=== PATIENT | male | born 1965 | race Caucasian/White ===

== ENCOUNTER 2023-01-12 07:55 | Outpatient (CLI) | payer BC, SELFPAY ==
--- OUTSIDE RECORDS SUMMARY | 2023-01-14 09:53 | XMS_ITS | Continuity of Care Document ---
Author Name Unknown Organization [facility] Address [address] [place] [address] Phone Care Team Providers Care Pulp Tester Name Role Phone Silver Sun Unavailable Unavailable Advance Directives Directive Yes / No Effective Date File Name No Information Encounters Encounter Description Practice Location Reason(s) For Visit Diagnoses Date Provider Providers Copied on Encounter [facility] , [address], [place], [place], [id number], [place] tel:[phone] No Information Yonathan Sheppard. [facility], [address] [place] [address] [address], [place], [place], [id number], [place]. tel:[phone] Family History Family Member Type Diagnosis Age At Onset No Information Payers Payer name Insurance type Covered libertarian ID Authoriza tion(s) No Information Social History Type Description Quantity Date Captured Comments Sex Male Smoking Status No Information Chief Complaint And Reason For Visit No Information Reason For Referral Reason For Referral No Information History Of Present Illness Encounter Date Complaint History Of Prese nt Illness No Information Functional Status Date Functional Assessmen t No Information Instructions Date Instruction Additional Infor mation No Information Assessments Type Assessment Date No Information Patient Care Teams Name Effective Dates (start - stop) Status Members No Information
== END 2023-01-12 07:56 | disposition home or self-care (01) ==
LOC: NFLDREF 01-14 09:52
PROVIDERS: PCP Family Medicine; Referring Provider Family Medicine; Visit Provider Family Medicine
DX: Z00.00 Encounter for general adult medical examination without abnormal findings (principal); E78.5 Hyperlipidemia, unspecified; R53.83 Other fatigue; Z12.5 Encounter for screening for malignant neoplasm of prostate
CPT/HCPCS: 80053; 80061; 84153

== ENCOUNTER 2023-12-18 13:39 | Emergency (ER) | payer OTHER, SELFPAY ==
[2023-12-18 13:49] VITALS: BP 144/78; PULSE 84; RESP 16; TEMP 36.9; O2SAT 94; BMI 29.4
--- NOTE | 2023-12-18 14:11 | ED.UPPEXIN ---
HPI - Extremity Injury (Upper) General Date Seen: 12/18/23 Chief Complaint: Extremity Pain/Injury, Upper Stated Complaint: injured left shoulder & right leg Time Seen by Provider: 12/18/23 14:11 Source: patient and RN notes reviewed Mode of arrival: ambulatory Limitations: no limitations History of Present Illness HPI narrative: This is a worker's comp visit Paulino is a very pleasant 58-year-old gentleman with a history of coronary artery disease status post bypass currently on aspirin daily who comes to the emergency room with complaints of left shoulder and right hamstring pain. Paulino states approximately a week ago he was at work holding a heavy sheet of plywood. He notes that he was turning and had the sudden onset and popping sensation in the back of his right thigh. He then had to shift all of the weight he was holding onto his left and was worried about his balance and therefore brought the plywood close to him causing a strain of his left shoulder. The next day he notes that he had discomfort and describes this as a strain like sensation. He did go to work the next day. However, his injury never really improved in his shoulder and in fact he has had more and more pain over the last 4 days. He notes that he cannot lift his arm. The pain in his shoulder radiates up into his neck and down into his hand. He has tried ibuprofen at home. He has not injured his shoulder in the past nor has he had any surgeries. Any movement greatly increases his discomfort. He does have some pain at rest as well. He notes that if he can lift his arm up and relieved the pressure in the shoulder he does have some decrease in his pain. In regards to his right thigh, he is still able to walk. Notes that the discomfort feels like a strain. He has not injured his hamstring in the past. He did not notice any unusual bruising. Related Data Home Medications ?Medication ?Instructions ?Recorded ?Confirmed aspirin 81 mg tablet,delayed 81 mg PO QDAY 05/28/22 12/18/23 release (Adult Aspirin Regimen) acetaminophen 500 mg oral powder 1,500 mg PO Q6H PRN 09/01/23 12/18/23 packet (Tylenol Extra Strength) ascorbic acid (vitamin C) 500 mg 500 mg PO DAILY 09/01/23 12/18/23 tablet cholecalciferol (vitamin D3) 25 1,000 unit PO DAILY 09/01/23 12/18/23 mcg (1,000 unit) tablet colchicine 0.6 mg tablet 0.6 mg PO .As Needed as needed PRN 09/01/23 12/18/23 famotidine 20 mg tablet (Pepcid) 20 mg PO QDAY PRN 09/01/23 12/18/23 prednisone 20 mg tablet 20 - 40 mg PO QDAY PRN 09/01/23 12/18/23 Previous Rx's ?Medication ?Instructions ?Recorded atorvastatin 40 mg tablet 40 mg PO QHS #90 tabs 01/14/23 pregabalin 75 mg capsule 75 - 150 mg (1 - 2 x 75 mg) PO BID 01/14/23 PRN pain #60 caps nitroglycerin 0.4 mg sublingual 0.4 mg sublingual Q5M PRN chest 04/29/23 tablet pain #20 tabs tramadol 50 mg tablet 50 mg PO TID PRN pain #30 tabs 09/01/23 prednisone 20 mg tablet 40 mg (2 x 20 mg) PO QDAY #10 tabs 11/25/23 ketorolac 10 mg tablet 10 mg PO Q8H PRN pain #10 tabs 12/18/23 prednisone 20 mg tablet 40 mg (2 x 20 mg) PO DAILY 5 days 12/18/23 #10 tabs Allergies Allergy/AdvReac Type Severity Reaction Status Date / Time gabapentin Allergy Severe Vomiting Verified 09/01/23 08:15 Review of Systems Status of ROS: Reports: 10 or more systems reviewed and unremarkable except as noted in History and below [facility] Surgical History History of vasectomy ?Z98.52 - Vasectomy status (ICD-10) History of three vessel coronary artery bypass (~09/2011) ?Z95.1 - Presence of aortocoronary bypass graft (ICD-10) History of operative procedure on hip ?Z98.890 - Other specified postprocedural states (ICD-10) History of hernia repair ?Z98.890 - Other specified postprocedural states (ICD-10) ?Z87.19 - Personal history of other diseases of the digestive system (ICD-10) Social History What is your current living situation?: I presently have a place to live Problems where you live: pests, such as bugs, ants, or mice In the past 12 months, utilities in danger of being shut off: no In past 12 months, lack of transportation kept you from medical appts, meetings, work, or getting things needed for daily living: no In the past 12 mos, have been you worried that your food would run out before you had money to buy more?: never true In the past 12 mos, the food you bought just didn't last and you didn't have money to buy more?: never true Smoking Status: Never smoker Do you use any of these nicotine containing products: None How often do you have a drink containing alcohol: monthly or less AUDIT-C Alcohol total score: 1 Non-prescribed substance use: marijuana (any form) How often does anyone, including family, friends and others, physically hurt you: never How often does anyone, including family, friends and others, insult or talk down to you: sometimes How often does anyone, including family, friends and others, threaten you with harm: never How often does anyone, including family, friends and others, scream or curse at you: sometimes Little interest or pleasure in doing things: not at all Feeling down, depressed, or hopeless: not at all Exam Narrative: Exam Narrative: Paulino is alert and oriented. He is a very pleasant gentleman. External ears eyes nose clear. He has some tenderness noted over the body of the trapezius on the left. Range of motion of his neck is full. Some discomfort with palpation over the posterior scapula. No pain with palpation over the clavicle or the AC joint. No obvious deformity at the shoulder. Biceps appears to be intact. Distally sensation and motor is intact. 1+ DTRs at the elbow and brachial radialis. Passive range of motion is tolerated very well with internal external rotation forward flexion extension. Abduction is to 90? passively before discomfort occurs. Active range of motion is compromise in all directions. Examination of the right side shows no obvious swelling edema or bruising. I do lift patient's leg and he is able to flex at the knee causing flexion of the posterior thigh muscles without difficulty. Const: Vital Signs, click to edit/add: Vital Signs - 24 hr 12/18/23 13:49 Temperature 98.4 F Pulse Rate [Left R adial] 84 Respiratory Rate 16 Blood Pressure [Ri ght Upper Arm] 144/78 H Pulse Oximetry 94 Oxygen Delivery Me thod Room Air Documenting provider has reviewed patient's vital signs: yes Course Course ED Course: Differential diagnosis includes but is not limited to rotator cuff injury, labral tear, tendinitis, other shoulder injury. At this time will obtain x-ray of the left shoulder. Reevaluation(s) Reevaluation #1: X-ray reassuring by my read. Patient agreeable to Toradol and a steroid but is declining any injections. Therefore we will use Toradol 10 mg p.o. and prednisone 60 mg. Vital Signs Vital signs: Initial Vital Signs Temperature 98.4 F 12/18/23 13:49 Temperature Source Temporal Artery Scan 12/18/23 13:49 Pulse Rate 84 12/18/23 13:49 Pulse Rhythm Regular 12/18/23 13:49 Respiratory Rate 16 12/18/23 13:49 Blood Pressure 144/78 H 12/18/23 13:49 Blood Pressure Mean 100 12/18/23 13:49 Pulse Oximetry 94 12/18/23 13:49 Oxygen Delivery Method Room Air 12/18/23 13:49 Vital Signs Temperature 98.4 F 12/18/23 13:49 Pulse Rate 84 12/18/23 13:49 Respiratory Rate 16 12/18/23 13:49 Blood Pressure 144/78 H 12/18/23 13:49 Pulse Oximetry 94 12/18/23 13:49 Oxygen Delivery Method Room Air 12/18/23 13:49 Temperature 98.4 F 12/18/23 13:49 Pulse Rate 84 12/18/23 13:49 Respiratory Rate 16 12/18/23 13:49 Blood Pressure 144/78 H 12/18/23 13:49 Pulse Oximetry 94 12/18/23 13:49 Oxygen Delivery Method Room Air 12/18/23 13:49 Medications Administered Medications: Discontinued Medications Generic Name Dose Route Start Last Admin Trade Name Freq PRN Reason Stop Dose Admin Ketorolac Tromethamine 10 mg 12/18/23 14:25 12/18/23 14:49 Ketorolac 10 Mg Tablet PO 12/18/23 14:26 10 mg ONCE ONE Administration Prednisone 60 mg 12/18/23 14:25 12/18/23 14:49 Prednisone 20 Mg Tablet PO 08/02/24 14:26 60 mg ONCE ONE Administration MDM - Extremity Injury (Upper) MDM Narrative Medical decision making narrative: 1. Left shoulder injury-suspect rotator cuff. In the ED patient was placed in a shoulder immobilizer. He was given Toradol 10 mg and prednisone 60 mg after declining any injections. We will continue on prednisone 40 mg a day for the next 5 days and this is given through our [facility] meds machine. At home he may use his tramadol as needed. I am hoping he will have pain relief in the next few hours as the prednisone starts working. Ultimately I do believe he will need an MRI. As it is workers comp I will need to have approved this approved. I spoke with orthopedic PA today and they will be looking for Paulino to call in on ThursdayDecember 20. I did warn him that physical therapy may also be necessary prior to the MRI. We spoke about [id number] exercises in the ER demonstrated today. I would like him to do this 3 to 4 times a day to preserve range of motion and avoid frozen shoulder. 2. Right hamstring strain-at this time I do not find any evidence of a tear. Recommend orthopedic consult likely PT with ultrasound therapy for evaluation. Ice as needed. 3. Disposition-home at this time. Paulino states he does not need a note for work as he knows the boss very well. He is currently on a PPI which I do recommend with the use of prednisone. Return to the emergency room for worsening symptoms and as needed. Patient is requesting Toradol and prednisone be sent to pharmacy. Toradol 10 mg p.o. t.i.d. p.r.n. 10. Tablets and prednisone 40 mg daily x5 days is sent to his pharmacy. Medical Records Attestation: I reviewed the patient's medical records. Imaging Data Left shoulder x-ray: Attestation: I have reviewed the pertinent imaging results. My impression: No obvious abnormalities. Radiologist's impression: Bones: No evidence of fracture. Bipartite acromion. Joint spaces: Unremarkable. Soft tissues: Unremarkable. Impression: No evidence of fracture or dislocation. Incidental bipartite acromion. Discharge Plan Discharge Clinical Impression: Injury of left shoulder, Right hamstring injury Patient Disposition: Home, Self-Care Condition: Improved Additional Instructions: Recommend wearing immobilizer for comfort. Three to 4 times a day please remove your arm from the immobilizer and do the [id number] exercises that I demonstrated and we talked about in order to prevent a frozen shoulder. Continue prednisone as your anti-inflammatory over the next 4 days. Call the orthopedic clinic on Thursday for an appointment. The number is [phone] Return to the emergency room for worsening symptoms. Prescriptions: New prednisone 20 mg tablet 40 mg PO DAILY 5 Days Qty: 10 0RF ketorolac 10 mg tablet 10 mg PO Q8H PRN (Reason: pain) Qty: 10 0RF Rx Instructions: maximum total duration of 5 days from all oral, intranasal, or parenteral formulations No Action Tylenol Extra Strength 500 mg powder in packet 1,500 mg PO Q6H PRN prednisone 20 mg tablet 20 - 40 mg PO QDAY PRN Rx Instructions: Take 40mg daily x 4 days, then 20mg daily x 4 days. colchicine 0.6 mg tablet 0.6 mg PO .As Needed as needed PRN Hold Instructions: per pt. Rx Instructions: take 2 tabs at once, take additional 1 tab 1 hr later. famotidine [Pepcid] 20 mg tablet 20 mg PO QDAY PRN cholecalciferol (vitamin D3) 25 mcg (1,000 unit) tablet 1,000 unit PO DAILY ascorbic acid (vitamin C) 500 mg tablet 500 mg PO DAILY tramadol 50 mg tablet 50 mg PO TID PRN (Reason: pain) Qty: 30 5RF aspirin [Adult Aspirin Regimen] 81 mg tablet,delayed release (DR/EC) 81 mg PO QDAY pregabalin 75 mg capsule 75 - 150 mg PO BID PRN (Reason: pain) Qty: 60 5RF atorvastatin 40 mg tablet 40 mg PO QHS Qty: 90 3RF nitroglycerin 0.4 mg tablet, sublingual 0.4 mg sublingual Q5M PRN (Reason: chest pain) Qty: 20 0RF Rx Instructions: up to 3 doses prednisone 20 mg tablet 40 mg PO QDAY Qty: 10 0RF Follow Up/Referrals: Matthias Peralta MD [Primary Care Provider] - Stand Alone Forms: [facility] Info Instructions
--- NOTE | 2023-12-18 14:25 | CRLHL7_ITS ---
For Patients: As a result of the Cures Act, medical imaging exams and procedure reports are released immediately into your electronic medical record. You may view this report before your referring provider. If you have questions, please contact your health care provider. Indication: Left shoulder pain. Technique: Left shoulder 3 views. Comparison: None. Findings: Bones: No evidence of fracture. Bipartite acromion. Joint spaces: Unremarkable. Soft tissues: Unremarkable. Impression: No evidence of fracture or dislocation. Incidental bipartite acromion. Dictated by Obdulio Shelley MD @ 12/18/2023 3:13:27 PM (Electronically Signed)
--- OUTSIDE RECORDS SUMMARY | 2023-12-18 14:36 | XMS_ITS | Clinical Summary ---
Author Organization [facility] Address [address] [place] [id number] Care Team Providers Care Glass Designer Name Role Phone [facility], [facility] Primary Care Provider Allergies Active Allergy Reactions Criticality Noted Date Comments Gabapentin Nausea 08/23/2021 Medications Medication Sig Dispensed Refills Start Date End Date Status aspirin 81 MG EC tablet Take 1 tablet by mouth daily. 90 tablet 3 11/25/2012 Active nitroglycerin (NITROSTAT) 0.[address] 1 tablet under the tongue every 5 minutes as needed for chest pain. 25 tablet 0 11/25/2012 Active Atorvastatin Calcium (LIPITOR PO) Take 40 mg by mouth daily Active Cholecalciferol (VITAMIN D) 1000 UNITS capsule Take 1,000 Units by mouth daily Active vitamin B complex with vitamin C (VITAMIN B COMPLEX) TABS Take 1 tablet by mouth daily Active pregabalin (LYRICA) 75 MG capsule Take 1 capsule by mouth 2 times daily 08/13/2021 Active traMADol (ULTRAM) 50 MG tablet TAKE 1 TABLET BY MOUTH 3 TIMES DAILY NEEDED. MAX 400MG/DAY 08/12/2021 Active Active Problems Problem Noted Date Diagnosed Date Dyspnea 08/23/2021 Hx of CABG 08/23/2021 Gout, unspecified 03/27/2021 Radiculitis of left cervical region 04/27/2018 Chest pain 01/02/2014 Major depression, single episode 04/14/2012 CAD (coronary artery disease ), bypass graft transplanted heart 10/23/2011 Overview: 3V CABG. 10/10/2011- [facility] Mixed hyperlipidemia 07/23/2010 Resolved Problems Problem Noted Date Diagnosed Date Resolved Date Advanced directives, counseling/discussion 10/16/2011 10/17/2011 Overview: Discussed advance care planning with patient; information given to patient to review. Pt received Favorite Words packet. Jhoana Kelley, [facility] 10/16/2011 Unstable angina 10/10/2011 10/17/2011 Pain in joint, pelvic region and thigh 05/06/2007 06/10/2007 Other postprocedural status(V45.89) 05/06/2007 06/10/2007 Social History Tobacco Use Types Packs/Day Years Used Date Smoking Tobacco: Some Days Cigarettes Tobacco Cessation:Ready to Q uit: Yes Alcohol Use Standard Drinks/Week Comments Yes 1.7 (1 standard drin k = 0.6 oz pure alcohol) ~ 1time per month has 14-15 beers in 6 hour period Adolescent Education Answer Date Record ed Getting School Help Needed Not on file 02/21 Sex and Gender Information Value Date Recorded Sex Assigned at Not on file Gender Identity Not on file Sexual Orientation Not on file Last Filed Vital Signs Vital Sign Reading Time Taken Comments Blood Pressure 91/73 08/23/2021 4:15 PM CDT Pulse 74 08/23/2021 4:15 PM CDT Temperature 36.9 ??C (98.4 ??F) 08/23/2021 1 1:03 AM CDT Respiratory Rate 18 08/23/2021 11:0 3 AM CDT Oxygen Saturation 96% 08/23/2021 4:15 PM CDT Inhaled Oxygen Concentration - - Weight 101.6 kg (223 lb 15.8 oz) 2021 11:03 AM CDT Height 190.5 cm (6' 3) 01/02/2014 6:00 PM CDT Body Mass Index 28 01/02/2014 6:00 PM CDT Plan of Treatment Health Maintenance Due Date Last Done Comments ANNUAL REVIEW OF HM ORDERS 1966 CT COLONOGRAPHY 1966 DEPRESSION ACTION PLAN 1966 FIT 1966 FLEX SIG 1966 PHQ-9 1966 YEARLY PREVENTIVE VISIT 1966 sDNA (Cologuard) 1966 Pneumococcal Vaccine: Pediatrics (0 to 5 Years) and At-Risk Patients (6 to 64 Years) (1 of 2 - PCV) 1972 COLONOSCOPY 1976 COLORECTAL CANCER SCREENING 1976 HIV SCREENING 1981 HEPATITIS C SCREENING 1984 HEPATITIS B IMMUNIZATION (1 of 3 - 19+ 3-dose series) 1985 LIPID 10/10/2012 10/11/2011 LUNG CANCER SCREENING 2016 ZOSTER IMMUNIZATION (1 of 2) 2016 ADVANCE CARE PLANNING 10/16/2016 10/17/2011, 012 COVID-19 Vaccine (3 - season) 2023 08/25/2020, 08/04/2020 INFLUENZA VACCINE (#1) 2024 05/14/2020 GLUCOSE 08/23/2024 08/23/2021, 06/19, 08/04/2016, Additional history exists DTAP/TDAP/TD IMMUNIZATION (4 - Td or Tdap) 03/28/2031 03/28/2021, 09/16/2011, 04/16/2007 HPV IMMUNIZATION Aged Out No longer e ligible based on patient's age to complete this topic IPV IMMUNIZATION Aged Out No longer e ligible based on patient's age to complete this topic MENINGITIS IMMUNIZATION Aged Out No l onger eligible based on patient's age to complete this topic RSV MONOCLONAL ANTIBODY Aged Out No l onger eligible based on patient's age to complete this topic Medical Devices Implanted Type Area Hosp[facility] Fellow Device Identifier Shelf Expiration Date Model / Serial / Lot Imp Clip Horiz Multi Sm Yellow Implanted:Qty: 2 on 10/13/2011 at [facility] [id number] / / Procedures Procedure Name Priority Date/Time Associated Diagnosis Comments BASIC METABOLIC PANEL STAT 08/23/2021 11:20 AM CDT LIPID REFLEX TO DIRECT LDL PANEL Routine 10/11/2011 5:00 AM CDT from Last 3 Months or Most Recently Relevant to Health Maintenance Results * (ABNORMAL) Basic metabolic panel (08/23/2021 11:20 AM CDT) [facility] Sodium 137 133 - 144 mmol/L 08/23/2021 12:01 PM CDT LABORATORY Potassium 4.3 3.4 - 5.3 mmol/L 08/23/2021 12:01 PM CDT LABORATORY Chloride 103 94 - 109 mmol/L 08/23/2021 12:01 PM CDT LABORATORY Carbon Dioxide (CO2) 26 20 - 32 mmol/L 08/23/2021 12:01 PM CDT LABORATORY Anion Gap 8 3 - 14 mmol/L 08/23/2021 12:01 PM CDT LABORATORY Urea Nitrogen 14 7 - 30 mg/dL 08/23/2021 12:01 PM CDT LABORATORY Creatinine 0.89 0.66 - 1.25 mg/dL 08/23/2021 12:01 PM CDT LABORATORY Calcium 9.4 8.5 - 10.1 mg/dL 08/23/2021 12:01 PM CDT LABORATORY Glucose 123(H) 70 - 99 mg/dL 08/23/2021 12:01 PM CDT LABORATORY GFR Estimate >90 >60 mL/min/1.7 3m2 08/23/2021 12:01 PM CDT LABORATORY Comment:Effective April 182020 eGFRcr in adults is calculated using the 2020 CKD-EPI creatinine equation which includes age and gender (Macario et al., NEJM, DOI: 10.1056/RDTEio2551582) Blood STRUCTURE OF RIGHT UPPER LIMB / Unknown Venipuncture / Unknown 08/23/2021 11:20 AM CDT 08/23/2021 11:27 AM CDT Severo Benjamin PA-C LAB - BLOOD ORDERABL ES LABORATORY [facility] [address] Lab (1st floor, no room number) [place] [address], [facility] [phone] * (ABNORMAL) Lipid panel reflex to direct LDL (10/11/2011 5:00 AM CDT) Cholesterol 190 0 - 200 mg/dL [facility] Comment: LDL Cholesterol is the primary guide to therapy. The NCEP recommends further evaluation of: patients with cholesterol greater than 200 mg/dL if additional risk factors are present, cholesterol greater than 240 mg/dL, triglycerides greater than 150 mg/dL, or HDL less than 40 mg/dL. Triglycerides 209(H) 0 - 150 mg/dL [facility] HDL Cholesterol 48 40 - 110 mg/dL [facility] LDL Cholesterol Calculated 100 0 - 129 mg/dL [facility] Comment: LDL Cholesterol is the primary guide to therapy: LDL-cholesterol goal in high risk patients is <100 mg/dL and in very high risk patients is <70 mg/dL. VLDL-Cholesterol 42(H) 0 - 30 mg/dL [facility] Cholesterol/HDL Ratio 3.9 0.0 - 5.0 [facility] Blood specimen (specimen) 10/11/2011 5:00 AM CDT 10/11/2011 5:33 AM CDT Amilcar Kovacs MD LAB - BLOOD ORDERABL ES [facility] from Last 3 Months or Most Recently Relevant to Health Maintenance Advance Directives For more information, please contact: [phone] * Full Code (Latest Code Status on File) Date Activated Date Inactivated Comments 01/02/2014 5:50 PM 01/03/2014 9:50 PM * Full Code Date Activated Date Inactivated Comments 10/10/2011 11:15 PM 10/18/2011 8:18 PM Care Teams Glass Designer Relationship Specialty Start Date End Date [address] [address] PCP - General 08/04/16
--- OUTSIDE RECORDS SUMMARY | 2023-12-18 14:36 | XMS_ITS | Clinical Summary ---
Author Organization [facility] Address [address] [place] [address] Care Team Providers Care Incident Response Specialist Name Role Phone Needs Pcp, Assignment Primary Care Provider [phone] Source Comments You are receiving this document as you are listed as the primary care provider,follow-up provider, or the patient has been referred to you for consultation.This is in compliance with the Medicare and[facility] EHR Incentive Program,which states Providers who transition their patient to another setting of careor provider of care or refers their patient to another provider of care shouldprovide summary care record for each transition of care or referral. Babyage Allergies Active Allergy Reactions Criticality Noted Date Comments Gabapentin Nausea 11/10/2017 Other Other, see comments High 04/15/2021 Passes out with needles Medications Medication Sig Dispensed Refills Start Date End Date Status atorvastatin (LIPITOR) 10 MG tablet Take 10 mg by mouth daily. Active aspirin, enteric-coated 81 MG enteric coated tablet Take 81 mg by mouth daily. Active colchicine (COLCRYS) 0.6 MG tablet 03/28/2021 Active traMADol (ULTRAM) 50 MG tablet 03/28/2021 Active dexamethasone (DECADRON) 4 MG/ML injection to be used during therapy for iontophoresis 15 mL 03/29/2021 Active Social History Tobacco Use Types Packs/Day Years Used Date Smoking Tobacco: Former Smokeless Tobacco: Never Sex and Gender Information Value Date Recorded Sex Assigned at Not on file Gender Identity Not on file Sexual Orientation Not on file Last Filed Vital Signs Vital Sign Reading Time Taken Comments Blood Pressure 106/72 11/16/2017 7:01 PM CDT Pulse 79 11/16/2017 7:01 PM CDT Temperature 36.8 ??C (98.2 ??F) 11/16/2017 7:01 PM CD T Respiratory Rate 18 11/16/2017 7:01 PM CDT Oxygen Saturation - - Inhaled Oxygen Concentration - - Weight 107.5 kg (237 lb) 11/16/2017 7:01 PM CDT Height - - Body Mass Index - - Plan of Treatment Health Maintenance Due Date Last Done Comments Colon Cancer Screening Plan Due 1965 Hep C Screening (Preventive Services) 1965 PSA Screening Discussion 1966 HIV Screening (Preventive Services) 1982 Adult Preventive Visit 1984 HepB (1) 1985 Cholesterol 2001 Zoster/Shingles (1 of 2) 2016 COVID-19 Vaccine (3 - 2022-2 4 season) 2023 08/25/2020, 08/04/2020 Influenza (#1) 2024 05/14/2020 DTaP/Tdap/Td (4 - Tdap) 03/28/2031 03/28/20, 09/16/2011, 04/16/2007 HepA Aged Out No longer eligi ble based on patient's age to complete this topic Hib Aged Out No longer eligi ble based on patient's age to complete this topic IPV (Polio) Aged Out No longer eligi ble based on patient's age to complete this topic MCV4 Aged Out No longer eligi ble based on patient's age to complete this topic Pneumococcal Aged Out No longer eligi ble based on patient's age to complete this topic Care Teams Incident Response Specialist Relationship Specialty Start Date [place] [address] PCP - General 04/29/23
--- OUTSIDE RECORDS SUMMARY | 2023-12-18 14:36 | XMS_ITS | Encounter Summary ---
Author Organization [facility] Address [address] [place] [address]. [place] [address] Care Team Providers Care Experience Specialist Name Role Phone [facility], [facility] [place] Primary Care Provider Clinic, [facility] Primary Care Provider Encounter Details Date Type Department Care Team (Late st Contact Info) Description 01/26/2012 Office Visit-[facility] [place] [id number] [facility] [address] [place] [phone] Simón Ahumada MD [address] [facility] [address] [place], [place] [id number] Social History Tobacco Use Types Packs/Day Years Used Date Smoking Tobacco: Every Day Cigarettes Alcohol Use Standard Drinks/Week Comments Yes 1.7 (1 standard drin k = 0.6 oz pure alcohol) ~ 1time per month has 14-15 beers in 6 hour period Sex and Gender Information Value Date Recorded Sex Assigned at Not on file Gender Identity Not on file Sexual Orientation Not on file documented as of this encounter Progress Notes * Simón Ahumada MD - 01/26/2012 8:26 AM CDT Progress Note Created by: Simón Ahumada MD DATE: 01/26/2012 ANH CALI DATE OF : 1965 AGE: [age] years old Referring Physician: BETSEY PORRAS Referring Clinic[facility] CURRENT DIAGNOSES 1. Polyneuropathy In Other Diseases Classified Elsewhere, 357.4 2. - Hyperlipidemia, 272.4 3. - CAD, 414.00 4. - CABG, V45.81 ALLERGIES MEDICATIONS (prior to changes made today) 1. Lidoderm 5 %(700 mg/patch) Adhesive Patch, Medicated, Apply every morning May cut patches 2. Vicodin 5-500 mg tablet, 1 p.o. three times daily CHIEF COMPLAINTS HISTORY OF PRESENT ILLNESS Patient arrived at [place] for an [place] ([place]) visit. He was requesting to see someone today regarding his paresthesias from his CABG wound sites. Had 15 minute discussion (no charge) regardinghis neuropathy. Does have rash to gabapentin. Prescribed one month of limited Vicodin and lidoderm patches that he can cut and apply to the most annoying skin areas. If the discomfort feels better with the patches, then he may cancel his Thursday [place] appointment and reschedule for 2-3 weeks (he is worried about taking off two days in one week). Simón Ahumada MD documented in this encounter Plan of Treatment Not on file documented as of this encounter Visit Diagnoses Not on filedocumented in this encounter Care Teams Experience Specialist Relationship Specialty Start Date End Date [facility], [place] [address] [place], [place] [id number] PCP - General 10/08/11 08/03/16 Clinic, [address] [address] PCP - General 08/04/16 documented as of this encounter
--- OUTSIDE RECORDS SUMMARY | 2023-12-18 14:36 | XMS_ITS | Continuity of Care Document ---
Author Organization [facility] Address [address] [place] [address] Phone Care Team Providers Care Bread Oven Operator Name Role Phone [place] Unavailable Unavailable Advance Directives Directive Yes / No Effective Date File Name No Information Encounters Encounter Description Practice Location Reason(s) For Visit Diagnoses Date Provider Providers Copied on Encounter [facility] , [address], [place], [place], [id number], [place] tel:[phone] No Information Yonathan Sheppard. [facility], [address] [place] [address], [place], [place], [id number], [place]. tel:[phone] Family History Family Member Type Diagnosis Age At Onset No Information Payers Payer name Insurance type Covered republican ID Authoriza tion(s) No Information Social History [...]
--- OUTSIDE RECORDS SUMMARY | 2023-12-18 14:36 | XMS_ITS | Clinical Summary ---
Author Organization [facility] Address [place], [place] [address] Care Team Providers Care Forensic Locksmith Name Role Phone Matthias Peralta MD Primary Care Provider [phone] Allergies Active Allergy Reactions Criticality Noted Date Comments Gabapentin Nausea Only 11/10/2017 Medications Medication Sig Dispensed Refills Start Date End Date Status aspirin enteric coated 81 mg tablet Take 1 tablet by mouth once daily with a meal. 0 10/23/2011 Active atorvastatin (LIPITOR) 20 mg tablet Take 1 tablet by mouth once daily. 30 tablet 3 07/30/2012 Active tramadol HCl/acetaminophen (TRAMADOL-ACETAMINOP HEN ORAL) Take by mouth. Active ergocalciferol, vitamin D2, (VITAMIN D2 ORAL) Take by mouth. Active ibuprofen (ADVIL; MOTRIN) 800 mg tabletIndications:Ch ronic heel pain, right,Plantar fasciitis Take 1 tablet by mouth 3 times daily if needed. 60 tablet 2 12/22/2019 Active durable medical equipment (DME)Indications:Taqueria ntar fasciitis,Chronic heel pain, right DJO 01EFL, boot walk airselect std tall large 0 12/22/2019 Active Active Problems Problem Noted Date Diagnosed Date Radiculitis of left cervical region 04/27/2018 Issue of repeat prescriptions 04/14/2012 Overview: Pain contract signed. Neuropathic chest wall pain s/p CABG. Vicodin 5/500, Cymbalta, and Elavil daily. Working toward cutting back on Vicodin use. Angela Ross, .................... 04/14/2012 9:34 PM Major depression, single episode 04/14/2012 Neuropathic pain of chest 12/25/2011 CAD (coronary artery disease ), bypass graft transplanted heart 10/23/2011 Overview: 3V CABG. 10/10/2011- [place] Mixed hyperlipidemia 07/23/2010 Displacement of intervertebr al disc, site unspecified, without myelopathy 11/15/2007 Gout, unspecified Immunizations Name Administration Dates Next Due Tdap 04/16/2007 Family History Relation Name Status Comments Father Mother Social History Tobacco Use Types Packs/Day Years Used Date Smoking Tobacco: Former Cigarettes 0.5 20 0 10/10/1991 - 10/10/2011 Smokeless Tobacco: Never Tobacco Cessation:Counseling Given: Yes Alcohol Use Standard Drinks/Week Comments Yes 0 (1 standard drink = 0.6 oz pur e alcohol) social Social Connections Answer Date Recorded Frequency of Communication with Friends and Fami ly Not on file 05/18/2021 Financial Resource Strain Answer Date R ecorded Difficulty of Paying Living Expenses Not on file 05/18/2021 Difficulty of Paying Living Expenses Not on file 05/18/2021 Sex and Gender Information Value Date Recorded Sex Assigned at Not on file Gender Identity Not on file Sexual Orientation Not on file Obstetrics History Last Filed Vital Signs Vital Sign Reading Time Taken Comments Blood Pressure 125/86 02/15/2020 4:14 PM CDT Pulse 78 02/15/2020 4:14 PM CDT Temperature 36.2 ??C (97.2 ??F) 04/28/2018 8:29 AM CS T Respiratory Rate 20 04/28/2018 9:29 AM SCANNING CLERK Oxygen Saturation 97% 02/15/2020 4:14 PM CDT Inhaled Oxygen Concentration - - Weight 105.7 kg (233 lb) 12/22/2019 3:18 PM CDT Height 190 cm (6' 2.8) 08/25/2019 9:32 AM CDT Body Mass Index 29.28 08/25/2019 9:32 AM CDT Plan of Treatment Health Maintenance Due Date Last Done Comments Depression screening for age 12+ 1978 HIV for age 15-65 1981 Hepatitis C screening for age 18-79 1984 Colonoscopy through age 75 2011 Zoster (shingles) series for age 50+ (1 of 2) 2016 Tetanus booster 04/16/2017 04/16/2007 Lipids for age 45-75 07/29/2017 07/29/2012, 03/26/2012, 10/27/2011, Additional history exists BMI (ht and wt on same day) for age 18+ 08/24/2020 08/25/2019, 06/10/2018, 03/15/2018 COVID-19 vaccine series (2022- season) 2023 Influenza for age 50-64 01/17/2024 Tdap Completed 04/16/2007 Pneumococcal series for age 6-64 Aged Out No longer eligible based on patient's age to complete this topic Procedures Procedure Name Priority Date/Time Associated Diagnosis Comments LIPID PANEL W REFLEX MEASURED LDL Routine 07/29/2012 2:08 PM CDT Overweight from Last 3 Months or Most Recently Relevant to Health Maintenance Results * (ABNORMAL) LIPID PANEL W REFLEX MEASURED LDL (07/29/2012 2:08 PM CDT) CHOLESTEROL,TOTA L 216(H) 100 - 199 mg/dL [facility] TRIGLYCERIDES 338(H) <150 mg/dL [facility] HDL CHOLESTEROL 43 >40 mg/dL [facility] CHOL/HDL RATIO 5.02(H) <4.50 [facility] NON-HDL CHOLESTEROL 173 Undefined mg/dL [facility] LDL CHOLESTEROL 105 <131 mg/dL [facility] PATIENT STATUS Non-Fast ing [facility] Blood specimen (specimen) BLOOD SPECIMEN / Unknown 07/29/2012 2:08 PM CDT 07/29/2012 2:03 PM CDT Angela Ross DO CHEMISTRY [facility] INTERNAL ZIP [address] [place] [address] from Last 3 Months or Most Recently Relevant to Health Maintenance Care Teams Forensic Locksmith Relationship Specialty Start Date End Date Matthias Peralta MD [address] [place] [phone] PCP - General Family Practice 03/08/18
--- OUTSIDE RECORDS SUMMARY | 2023-12-18 14:36 | XMS_ITS | Encounter Summary ---
Author Organization [facility] Address [address] [place] [address] Care Team Providers Care Care Giver Name Role Phone Clinic, [facility] Primary Care Provider Clinic, [facility] Primary Care Provider Encounter Details Date Type Department Care Team (Late st Contact Info) Description 11/06/2011 Office Visit-P INTERFACE P DEPT Sebas Bryson MD XXX RESIGNED XXX [place] [id number] Social History Tobacco Use Types Packs/Day Years [...] as of this encounter Progress Notes * Sebas Bryson MD - 11/06/2011 2:30 PM CDT Repairer Cylinder Heads: Sebas Bryson Status: Final - Signature Encounter: 2011-11-06 14:30:00.000 Type: CV Surgery Letter Department of Surgery Division of Cardiovascular and Thoracic Surgery [place] Mail Code [address] [place] [address] [address] [facility] Cardiothoracic Surgery [address] [facility] [address] [facility] [address] November 06, 2011 Vineet Young MD [address] [place] [address] Mike Nugent MD [facility] [address] [facility] [address] RE: Paulino Mcbride : 1965 XAVIER: 11/06/2011 Dear Doctors: Mr. Mcbride returned to the office today for a postoperative followup visit. This gentleman presented with unstable angina, dyslipidemia and a history of tobacco dependency. He was found to have diffuse coronary artery disease and on underwent triple-vessel coronary bypass including internal mammary artery grafting to the LAD, reversed saphenous vein graft to the 1st diagonal and reversed saphenous vein graft to the 2nd diagonal coronary arteries. Postoperatively, the patient had a fairly straightforward course. He had a small left apical pneumothorax which did not cause any significant difficulties. He was discharged on metoprolol, simvastatin and Roxicodone. The patient is [facility] participating in cardiac rehabilitation. He has had a fairly significant amount of difficulty with his left leg including pain extending from the knee on down to the ankle. He finds that it is significantly more comfortable for him to wear an elastic support stocking and wrap the lower part of his leg with an Bao bandage. He has had no other wound healing difficulties. He has been using fairly significant amounts of pain medication. However, he does try to elevate the leg at night. He uses a La-Z-Boy during the day, but is not able to get his leg above the level of his chest. Examination shows him to be healing well. His blood pressure is 110/70. Heart rate is 76. The sternotomy incision is well-healed and stable. Heart is regular without murmurs, rubs or gallops. Lungs are clear. His lower extremities are not edematous, but he does have an elastic stocking going up to just above the knee and has removed his Bao bandage. There is no evidence of induration or erythema. There is no drainage. I had a nice conversation with Mr. Mcbride about the necessity to keep his leg elevated above the level of his heart during the day and to avoid resting with his leg dependent. We have given him a prescription for Vicodin 30 tablets and have requested that he follow up for further pain medicine requests with his family physician. He does have a followup appointment with Dr. Young in January, at which time a checkout and final transfer visit will be done. All in all, Mr. Mcbride is doing reasonably well. I did inform him that he is about a third of the way through his recovery, but appearsto be making excellent progress. Thanks for the opportunity to participate in his care. Let us know if we can be of any further help. Sincerely, Sebas Bryson MD Department of Surgery [id number] Electronically signed by:Sebas Bryson M.D. Nov 11 2011 1:27PM DATA WAREHOUSE CONSULTANT documented in this encounter Plan of Treatment Not on file documented as of this encounter Visit Diagnoses Not on filedocumented in this encounter Care Teams Care Giver Relationship Specialty Start Date End Date [facility], [facility] [address] [place] [address] PCP - General 10/08/11 08/03/[address] [address] PCP - General 08/04/16 documented as of this encounter
--- OUTSIDE RECORDS SUMMARY | 2023-12-18 14:36 | XMS_ITS | Referral Summary ---
Author Organization [facility] Address [address] [place] [address] Care Team Providers Care Clinical Trials Assistant Name Role Phone [facility] [place] Primary Care Provider Allergies Active Allergy Reactions [...] transplanted heart 10/23/2011 Overview: 3V CABG. 10/10/2011- [place] [facility] Mixed hyperlipidemia 07/23/2010 Resolved Problems Problem Noted Date Diagnosed Date Resolved Date Advanced directives, counseling/discussion 10/16/2011 10/17/2011 Overview: Discussed advance care planning with patient; information given to patient to review. Pt received [facility] packet. Jhoana Kelley, [facility] 10/16/2011 Unstable angina 10/10/2011 10/17/2011 Pain [...] 01/02/2014 6:00 PM CDT Plan of Treatment Not on file Medical Devices Implanted Type Area Ceramic Capacitor Processor Device Identifier Shelf Expiration Date Model / Serial / Lot Imp Clip Horiz Multi Sm Yellow Implanted:Qty: 2 on 10/13/2011 at [facility] [id number] / / Procedures Procedure Name Priority Date/Time Associated Diagnosis Comments BASIC METABOLIC PANEL STAT 08/23/2021 11:20 AM CDT LIPID REFLEX TO DIRECT LDL PANEL Routine 10/11/2011 5:00 AM CDT from Last 3 Months or Most Recently Relevant to Health Maintenance Results * (ABNORMAL) Basic metabolic panel (08/23/2021 11:20 AM CDT) Sodium 137 133 - 144 mmol/L 08/23/2021 [...] and gender (Macario et al., NEJM, DOI: 10.1056/YCGDsw5107426) Blood STRUCTURE OF RIGHT UPPER LIMB / Unknown Venipuncture / Unknown 08/23/2021 11:20 AM CDT 08/23/2021 11:27 AM CDT Severo Benjamin PA-C LAB - BLOOD ORDERABL ES LABORATORY [facility] [address] Lab (1st floor, no room number) [place] [address] [phone] * (ABNORMAL) Lipid panel reflex to direct LDL (10/11/2011 5:00 AM CDT) Cholesterol 190 0 - 200 mg/dL [facility] Comment: LDL Cholesterol is the primary guide to therapy. The NCEP recommends further evaluation of: patients with cholesterol greater than 200 mg/dL if additional risk factors are present, cholesterol greater than 240 mg/dL, triglycerides greater than 150 mg/dL, or HDL less than 40 mg/dL. Triglycerides 209(H) 0 - 150 mg/dL [facility] HDL Cholesterol 48 40 - 110 mg/dL [facility] LDL Cholesterol Calculated 100 0 - 129 mg/dL [facility] Comment: LDL Cholesterol is the primary guide to therapy: LDL-cholesterol goal in high risk patients is <100 mg/dL and in very high risk patients is <70 mg/dL. VLDL-Cholesterol 42(H) 0 - 30 mg/dL [facility] Cholesterol/HDL Ratio 3.9 0.0 - 5.0 [facility] Blood specimen (specimen) 10/11/2011 5:00 AM CDT 10/11/2011 5:33 AM CDT Amilcar Kovacs MD LAB - BLOOD ORDERABL ES [facility] from Last 3 Months or Most Recently Relevant to Health Maintenance Advance Directives For more information, please contact: [phone] * Full Code (Latest Code Status on File) Date Activated Date Inactivated Comments 01/02/2014 5:50 PM 01/03/2014 9:50 PM * Full Code Date Activated Date Inactivated Comments 10/10/2011 11:15 PM 10/18/2011 8:18 PM Care Teams Clinical Trials Assistant Relationship Specialty Start Date End Date Clinic, [place] [address] [place] [address] PCP - General 08/04/16
--- OUTSIDE RECORDS SUMMARY | 2023-12-18 14:36 | XMS_ITS | Encounter Summary ---
Author Organization [place] Address [address] [place] [address]. [place] [address] Care Team Providers Care Copier Operator Name Role Phone [facility] Primary Care Provider Clinic, [facility] Primary Care Provider Encounter Details Date Type Department Care Team (Late st Contact Info) Description 03/15/2012 Office Visit-[facility] [place] [address] [facility] [address] [place] [phone] Vineet Young MD [address] [facility] [address] [place], [place] [address] Social History Tobacco Use Types Packs/Day Years [...] as of this encounter Progress Notes * Vineet Young MD - 03/18/2012 2:41 PM CDT Progress Note Created by: Vineet Young MD DATE: 03/15/2012 ANH CALI DATE OF : 1965 AGE: [age] years old Referring Physician: GENEVIEVE CANNON Referring Clinic: [facility] CURRENT DIAGNOSES 1. - CAD, 414.00 2. Polyneuropathy In Other Diseases Classified Elsewhere, 357.4 3. - Chest Pain Precordial, 786.51 4. - CABG, V45.81 5. - Hyperlipidemia, 272.4 ALLERGIES NKDA MEDICATIONS (prior to changes made today) 1. Aspirin Low Dose 81 mg tablet,delayed release (DR/EC), 1 p.o. daily 2. Lidoderm 5 %(700 mg/patch) Adhesive Patch, Medicated, Apply every morning May cut patches 3. simvastatin 40 mg tablet, 1 p.o. daily 4. triamcinolone acetonide 0.025 % Cream, Take as Directed 5. Tylenol Extra Strength 500 mg tablet, 1 p.o. PRN as Directed 6. Vicodin 5-500 mg tablet, 1 p.o. three times daily CHIEF COMPLAINTS CAD sp CABG, chest wall pain sp CABG and dyslipidemia HISTORY OF PRESENT ILLNESS Robert. Daria Cali, a 46-year-old man with coronary artery disease status post bypass surgery was seen today at your request for follow-up of persistent chest wall pain status post bypass surgery. Mr. Cali presented to [facility] with unstable angina in September 2011. On stress echocardiography, the patient developed worsening chest discomfort along with 1mm of anterolateral ST segment depression. He was sent from the stress test area to the emergency room and then admitted. Diagnostic left heart catheterization/left ventriculogram and coronary angiography performed via the right radial artery on 10/10/2011. The ejection fraction was 45-50% with anteroapical hypokinesis. The LAD had a proximal eccentric 80-90% narrowing that involved the origin of a moderate to large first diagonal branch. The diagonal branch arose at a 90 degree angle from the vessel. There was a 90% narrowing at the origin of the diagonal branch. The mid-LAD had a 30% narrowing and the second diagonalbranch, which was a moderate to large size vessel, had an ostial and proximal 70% narrowing. The nondominant circumflex and dominant right coronary had atherosclerotic change with no significant narrowing. At the time of his angiogram, I reviewed his films in details with Dr. Krueger, my colleague at [facility]. We both felt the patient was not a good candidate for percutaneous revascularization and in view of his instability he was transferred to [facility]. The patientthen underwent bypass surgery by Dr. Shari Hodge at which time a WILKINS graft was placed to the LAD and separate saphenous venous bypass grafts were placed to both the first and second diagonal branches. The patient was noted to have a convex chest but no other abnormalities were noted at the time of surgery. Subsequent to his surgery, the patient has continued to note pain in the region of his sternal incision. At one point, he thought he noted some clicking but this has not been a persistent problem. The patient localizes the pain as a burning discomfort that is along the sternal area. He reports no fevers. There has been no purulent drainage. The area is very tender to touch. The patient was seen in the emergency room and then also seen by my partner Dr. Ahumada in January 2010. Dr. Ahumada did not note sternal instability but gave the patient a limited prescription of Vicodin and Lidoderm patches. Mr. Cali has continued to complain of discomfort in the site. He told me that despite his discomfort, he can continue with his usual recreational activities and has continued to work. He told me he still requires Vicodin and takes the Lidoderm patches. The patient told me he saw his primary caredoctor, Dr. Cannon from [facility]. He told me he underwent x-ray that did not show any prob lems at the sternal site. He was told by his physician that either the surgeon or the technical agronomist will need to prescribe narcotic medications for his pain if they are felt necessary. The patient told me he is planning to switch his care from Dr. Cannon to another practitioner but did not have thename of another doctor at this time. According to our clinic records, he contacted our office and was told to arrange an appointment with the surgeon but has not done so yet. I have no records that he has seen the surgeon since immediately after his surgery. The patient told me at one point he underwent hernia surgery and had some problems at the incision site that required revision in the past. He questioned whether he could stop his metoprolol. He has been able to avoid smoking. Exam today demonstrates a 46-year-old man who appears comfortable at rest. His blood pressure was 112/80 in the right arm that I measured personally. His heart rate was 79. His lungs are clear to percussion and auscultation. Cardiovascular exam - there is a normal S1 with a normal S2, there is no S3, there is no murmur, rub or click. The sternotomy site appears to be well healed with keloid formation. The patient is exquisitely tender to touch although I could not detect any sternal instability. I did not note any clicking. Therewas no drainage or excessive warmth. PAST HISTORY Past Medical Illnesses: Dyslipidemia, tobacco dependency, gout arthritis, displacement of lumbar intervertebral disc, HTN, GERD, Neuropathy in chest Past Cardiac Illnesses: CAD, Unstable angina Surgeries/Procedures - General: hernia repair, back surgery, hip surgery Cardiac and Vascular Surgeries: 09/26 CABG x3 Bypass Graft Anatomy: 09/26 WILKINS to LAD, SVG to 1st diagonal, SVG to 2nd diagonal Cardiac/Vasc Procedures-Invasive: cardiac cath (left) September 2011 Cardiology Procedures-NonInvasive: stress echo September 2011 Cardiac Cath Results: 09/26 90% LAD, 85-90% diagonal, 70% 2nd diagonal PMHx Stress Echo Results: 09/26 mild lateral hypokinesia, mild-mod ant/septal/apical hypokinesia Left Ventricular Ejection Fraction: EF 40-45% by stress echo September 2011 EF 40-45% by stress echo September 2011 FAMILY HISTORY: CARDIAC RISK FACTORS Tobacco Abuse: used to smoke, but quit SOCIAL HISTORY Alcohol Use - drinks occasionally and socially; Smoking - used to smoke but quit and 09/2011; Diet -caffeine use-5 or more per day, Healthy eating , trying to do low sodium and ; Lifestyle - children, drives car and Girlfriend; Exercise - some exercise, treadmill 1 x's week and stairs daily; Seat Belt Use - always; 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 EARS, NOSE, THROAT, MOUTH denies any hearing loss, epistaxis, hoarseness or difficulty speaking. RESPIRATORY denies dyspnea, cough, wheezing or hemoptysis. CARDIOVASCULAR positive for chest pain - pressure - feels like a fire going on in chest / skin , cracking - crunchsound in chest 1+ weeks ago, heart pounds harder at night with Vicodin ABDOMINAL constipation and takes Senna S MUSCULOSKELETAL denies any history of arthritic symptoms or back problems. NEUROLOGICAL denies any history of recurrent strokes, headaches, TIA, or seizure disorder. PSYCHIATRIC positive for anxiety, positive for stress, positive for depression ENDOCRINE denies any history of thyroid disease or diabetes mellitus. HEMATOLOGICAL/IMMUNOLOGIC denies any food allergies, seasonal allergies, bleeding disorders. PHYSICAL EXAMINATION VITAL SIGNS: Blood Pressure: 84/53Sitting, Right arm, large cuff 112/80 Pulse- 79.00/min. Weight- 227.40 lbs. Height- 74.50 BMI Measurement: [facility] Error: [FrienditePlus][ODBC SQL Respiratory Care Faculty Neonatal Pediatric Nurse][SQL Respiratory Care Faculty]Divide by zero error encountered. - [id number] CONSTITUTIONAL cooperative, alert and oriented,well developed, well nourished, in no acute distress. SKIN warm and dry to touch, no apparent skin lesions, or masses noted. HEAD normocephalic, atraumatic EYES Pupils equal and round, conjunctivae and lids unremarkable, sclera white, no xanthalasma ENT no pallor or cyanosis, dentition good NECK carotid pulses are full and equal bilaterally, JVP normal, no carotid bruit, no thyromegaly CHEST Sternotomy site is clean without drainage. There is keloid formation at the incision site with subjective tenderness to palpation.No obvious sternal instability or clicking. CARDIAC regular rhythm, S1 normal, S2 normal, No S3 or S4, Apical impulse not displaced, no murmurs, gallops or rubs detected. ABDOMEN abdomen soft, bowel sounds normoactive, no masses, no hepatosplenomegaly, non- tender, no bruits PERIPHERAL PULSES pulses full and equal in all extremities, no bruits auscultated. EXTREMITIES & BACK no deformities, clubbing, cyanosis, erythema or edema observed. There are no spinal abnormalities noted. Normal muscle strength and tone. NEUROLOGICAL no gross motor deficits noted, affect appropriate, oriented to time, person and place. MEDICATIONS UPDATED/STARTED TODAY: Aspirin Low Dose 81 mg tablet,delayed release (DR/EC), 1 p.o. daily, #0 (Zero) simvastatin 40 mg tablet, 1 p.o. daily, #30 (Thirty) triamcinolone acetonide 0.025 % Cream, Take as Directed, #0 (Zero) Tylenol Extra Strength 500 mg tablet, 1 p.o. PRN as Directed, #0 (Zero) MEDICATIONS REFILLED/STOPPED TODAY: metoprolol succinate 25 mg tablet extended release 24 hr 1 p.o. daily #0 (Zero) Physician Order andsimvastatin 80 mg tablet 1 p.o. qHS #0 (Zero) Physician Order ASSESSMENT: Mr. Cali has persistent chest pain over the sternal incision site about 5 months after bypass surgery. I cannot detect any sternal instability but it is distinctly unusual for him to have pain so severe that he would require narcotic analgesic. We have no objective evidence of infection but I cannot entirely exclude a possible sternal wound infection or a problem with his sternotomy site. I told the patient that he would need to be seen by the surgeon. I informed him that I wouldbe unwilling to prescribe narcotic analgesia for his pain. The patient told me that he was frustrated that it seems that the doctors were passing around the problem to others. I told the patient that I would not feel comfortable prescription narcotic analgesia for him in this setting and that I felt it would be important for him to be seen by the surgeon and that in the meantime,he can take, tylenol, aspirin, Ibuprofen or Naproxen. RECOMMENDATIONS: 1.I have asked my ticket scheduler Delores to make an appointment for the patient to see his surgeon in follow-up and that the patient be scheduled for the visit with his surgeon prior to leaving the office today. 2.I informed the patient that I will not be prescribing narcotic analgesia for this problem. He can take Tylenol, Ibuprofen or aspirin as needed. 3.The patient can discontinue his metoprolol, which is at a low dose at this time. He should not require the drug long-term. 4.I told the patient heshould remain on aspirin and simvastatin at the current dose. 5.We will arrange a follow-up visit with my nurse in about one month to see how the patient is doing. I will plan to see the patent in six months. We have appreciated the opportunity to help care for Mr. Cali. TODAYS ORDERS 1. Return Visit 6 months 2. F/U with Nina Landry, MSN, DOCTORATE OF CHIROPRACTIC 1 month Vineet Young MD documented in this encounter Plan of Treatment Not on file documented as of this encounter Visit Diagnoses Not on filedocumented in this encounter Care Teams Copier Operator Relationship Specialty Start Date End Date [facility], [facility] [address] [place] [address] PCP - General 10/08/11 08/03/[address] [address] PCP - General 08/04/16 documented as of this encounter
--- OUTSIDE RECORDS SUMMARY | 2023-12-18 14:36 | XMS_ITS | Encounter Summary ---
Author Organization [place] Address [address] [place] [address] Care Team Providers Care Production Dispatcher Name Role Phone Clinic, [facility] [place] Primary Care Provider Clinic, [facility] Primary Care Provider Encounter Details Date Type Department Care Team (Late st Contact Info) Description 03/18/2012 Office Visit-P INTERFACE P DEPT Sebas Bryson MD XXX RESIGNED XXX [place] [id number] Social History Tobacco Use Types Packs/Day Years [...] Progress Notes * Sebas Bryson MD - 03/18/2012 2:30 PM CDT Gaming Dealer: Sebas Bryson Status: Final - Signature Encounter: 2012-03-18 14:30:00.000 Type: CV Surgery Visit Department of Surgery Division of Cardiovascular and Thoracic Surgery [place] Mail Code [address] [address] [facility] Cardiothoracic Surgery [address] [facility] [place] [facility] [address] [facility] [address] RE: Paulino Mcbride : 1965 XAVIER: 03/18/2012 CARDIOVASCULAR SURGERY VISIT--[facility] POSTOPERATIVE VISIT NOTE: Mr. Mcbride returns to clinic today for a 2nd postoperative visit to discuss sternal pain. He has been having some degree of sternal pain since time of his initial operationwhich was coronary artery bypass grafting done by Dr. Shari Hodge on 10/17/2011. To this point, he has had a good degree of pain that has been controlled with Vicodin and which he has needed to use on and off especially at night. He presents today after seeing other medical providers who have either not been able to deal with his pain or have not been willing to provide him with medication. Mieshaid have 1 visit to the emergency room at which point he was noted to have no focal findings on chest x- ray and also was discharged with pain medication at that time. He states that he has tried manydifferent home remedies to help his sternal incision pain; and, at this point, nothing has really helped. 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 He also uses Lidoderm patches in addition to some narcotic pain medications. He describes the pain as somewhat of a burning sensation around the sternal incision. He does not think it is deep or musculoskeletal. It has not been radiating and has been somewhat in remission over the past 2 weeks, but he feels that it has not gone entirely away. Overall, he is frustrated with not being able to treat his pain. MEDICATIONS: 1. Aspirin 81 mg, take 1 by mouth daily. Vicodin 5/325 mg, take 1-2 tablets by mouth every 6 hours as needed for pain. Indomethacin, take 50 mg by mouth 3 times daily as needed. Toprol XL 25 mg, take 1 tablet by mouth daily. Simvastatin 40 mg, take 1 tablet by mouth at bedtime. Pantoprazole 40 mg, take 1 tablet by mouth 2 times daily before meals. PHYSICAL EXAMINATION: VITAL SIGNS: Blood pressure 128/84, heart rate 76, weight 226. GENERAL: Well-developed male in no apparent distress. CARDIAC: Regular rate and rhythm, normal S1 and S2, no murmurs or rubs. PULMONARY: Lungs clear to auscultation bilaterally. STERNUM: Sternal incision is dry and intact. The incision does not move, and the sternum does not seem displaced when the patient coughs. There are no notable deformities along the sternal incision. There is no redness or erythema in the skin. EXTREMITIES: There is no appreciable pedal edema. ASSESSMENT/PLAN: Mr. Mcbride is a 46-year-old male who returns to postoperative clinic for the 2nd time and with complaints of sternal pain that has not completely resolved after undergoing coronary artery bypass grafting surgery at the beginning of October. I did discuss the importance of having his pain medication prescribed by a single provider. I also discussed with him that some pain will be normal after surgery, but that at this point he should be experiencing normal relief of symptoms with non-narcotic pain medication. I discussed with him the opportunity to follow up with the [facility], and I did place a referral for this. I also prescribed for him additional Vicodin, as he said he was running out of his supply currently. He agrees to follow with Pain Clinic and does also agree that it would be better for a pain management approach, as they would be able to provide close followup to him in the future. Sebas Bryson MD Department of Surgery Dictated by Kenney Sarah MD, PA-C GWA:[id number] Electronically signed by:Sebas Bryson M.D. Apr 20 2012 1:44PM CLIENT SUPPORT ANALYST NT SUPPORT ANALYST documented in this encounter Plan of Treatment Not on file documented as of this encounter Visit Diagnoses Not on filedocumented in this encounter Care Teams Production Dispatcher Relationship Specialty Start Date End Date [facility], [facility] [address] [place] [address] PCP - General 10/08/11 08/03/16 [facility], [address] [address] PCP - General 08/04/16 documented as of this encounter
--- OUTSIDE RECORDS SUMMARY | 2023-12-18 14:36 | XMS_ITS | Continuity of Care Document ---
Author Organization [facility] Address [address] [place] [address] Phone Care Team Providers Care Tankage Supervisor Name Role Phone Aspen Styles NP, NP Unavailable Unavailable Medications Medication Instructions Dosage Effective Dates (start - stop) Status Comments VICODIN (unknown strength) Unknown Not Available - Active Advance Directives Directive Yes / No Effective Date File Name No Information Encounters Encounter Description Practice Location Reason(s) For Visit Diagnoses Date Provider Providers Copied on Encounter [facility], [address], [place], [place], [id number], [place] tel:[phone] [facility] No Information Jensen Louise. [address] [facility] [address], [facility], [place], [address], [place]. tel:[phone] Referring Provider: Sebastian Rodriguez MD, [facility] [address] [place] [address] [address], [place], [address]. tel:[phone] Family History Family Member Type Diagnosis Age At Onset No Information Payers Payer name Insurance type Covered constitution party ID Authoriza tion(s) No Information Social History [...]
[2023-12-18] MEDS: predniSONE 20 MG TABLET 60 MG PO (14:49)
[2023-12-18] MEDS: KETOROLAC 10 MG TABLET PO (14:49)
== END 2023-12-18 17:50 | disposition home or self-care (01) ==
PROVIDERS: Emergency Provider Family Medicine; PCP Family Medicine
DX: S49.92XA Unspecified injury of left shoulder and upper arm, initial encounter (principal); S79.921A Unspecified injury of right thigh, initial encounter
CPT/HCPCS: 73030; 99283; 99284; A9270; J7512

== ENCOUNTER 2024-01-25 18:06 | Outpatient (CLI) | payer OTHER, SELFPAY ==
--- OUTSIDE RECORDS SUMMARY | 2024-01-25 18:10 | XMS_ITS | Encounter Summary ---
Author Organization [place] Address [address] [place] [address] Care Team Providers Care Safety Technician Name Role Phone Clinic, [facility] [place] Primary Care Provider Clinic, [facility] Primary Care Provider Encounter Details Date Type Department Care Team (Late st Contact Info) Description 03/18/2012 Office Visit-P INTERFACE P DEPT Sebas Bryson MD XXX RESIGNED XXX [place] [id number] Social History Tobacco Use Types Packs/Day Years [...] Bryson MD - 03/18/2012 2:30 PM CDT Health Type Technician: Sebas Bryson Status: Final - Signature Encounter: 2012-03-18 14:30:00.000 Type: CV Surgery Visit Department of Surgery Division of Cardiovascular and Thoracic Surgery [place] Mail Code [address] [address] [facility] Cardiothoracic Surgery [address] [facility] [address] [facility] [address] RE: Paulino Mcbride : 1965 XAVIER: 03/18/2012 CARDIOVASCULAR SURGERY VISIT--[facility] POSTOPERATIVE VISIT NOTE: Mr. 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 Apr 20 2012 1:44PM ENGINEER OF SYSTEM DEVELOPMENT NEER OF SYSTEM DEVELOPMENT documented in this encounter Plan of Treatment Not on file documented as of this encounter Visit Diagnoses Not on filedocumented in this encounter Care Teams Safety Technician Relationship Specialty Start Date End Date [facility], [facility] [place] [address] [place] [address] PCP - General 10/08/11 08/03/16 [facility], [address] [address] PCP - General 08/04/16 documented as of this encounter
--- OUTSIDE RECORDS SUMMARY | 2024-01-25 18:10 | XMS_ITS | Referral Summary ---
Author Organization [facility] Address [address] [place] [address] Care Team Providers Care Play Therapist Name Role Phone [facility], [facility] Primary Care Provider Allergies Active Allergy Reactions [...] transplanted heart 10/23/2011 Overview: 3V CABG. 10/10/2011- [facility] Mixed hyperlipidemia 07/23/2010 Resolved Problems Problem Noted Date Diagnosed Date Resolved Date Advanced directives, counseling/discussion 10/16/2011 10/17/2011 Overview: Discussed advance care planning with patient; information given to patient to review. Pt received [employer] packet. Jhoana Kelley, [facility] 10/16/2011 Unstable angina 10/10/2011 10/17/2011 Pain in [...] on file Medical Devices Implanted Type Area Chief Security And Safety Officer Device Identifier Shelf Expiration Date Model / Serial / Lot Imp Clip Horiz Multi Sm Yellow Implanted:Qty: 2 on 10/13/2011 at [facility] [id number] / / Procedures Procedure Name Priority Date/Time [...] and gender (Macario et al., NEJM, DOI: 10.1056/TWKSth1204384) Blood STRUCTURE OF RIGHT UPPER LIMB / Unknown Venipuncture / Unknown 08/23/2021 11:20 AM CDT 08/23/2021 11:27 AM CDT Severo Benjamin PA-C LAB - BLOOD ORDERABL ES LABORATORY [facility] Acute Care Lab [address] Lab (1st floor, no room number) [place] [address] [phone] * (ABNORMAL) Lipid panel reflex to direct LDL (10/11/2011 5:00 AM CDT) Cholesterol 190 0 - 200 mg/dL [facility] Comment: LDL Cholesterol is the primary guide to therapy. The NCEP recommends further evaluation of: patients with cholesterol greater than 200 mg/dL if additional risk factors are present, cholesterol greater than 240 mg/dL, triglycerides greater than 150 mg/dL, or HDL less than 40 mg/dL. Triglycerides 209(H) 0 - 150 mg/dL [facility] HDL Cholesterol 48 40 - 110 mg/dL [facility] LDL Cholesterol Calculated 100 0 - 129 mg/dL [facility] Comment: LDL Cholesterol is the primary guide to therapy: LDL-cholesterol goal in high risk patients is <100 mg/dL and in very high risk patients is <70 mg/dL. VLDL-Cholesterol 42(H) 0 - 30 mg/dL [facility] Cholesterol/HDL Ratio 3.9 0.0 - 5.0 [facility] Blood specimen (specimen) 10/11/2011 5:00 AM CDT 10/11/2011 5:33 AM CDT Amilcar Kovacs MD LAB - BLOOD ORDERABL ES [facility] from Last 3 Months or Most Recently Relevant to Health Maintenance Advance Directives For more information, please contact: [phone] * Full Code (Latest Code Status on File) Date Activated Date Inactivated Comments 01/02/2014 5:50 PM 01/03/2014 9:50 PM * Full Code Date Activated Date Inactivated Comments 10/10/2011 11:15 PM 10/18/2011 8:18 PM Care Teams Play Therapist Relationship Specialty Start Date End Date Clinic, [facility] [address] [place] [address] PCP - General 08/04/16
--- OUTSIDE RECORDS SUMMARY | 2024-01-25 18:10 | XMS_ITS | Encounter Summary ---
Author Organization [place] Address [address] [place] [address]. [place] [address] Care Team Providers Care Oven Worker Name Role Phone [facility], [facility] [place] Primary Care Provider Clinic, [facility] Primary Care Provider Encounter Details Date Type Department Care Team (Late st Contact Info) Description 01/26/2012 Office Visit-[facility] [place] [address] [facility] [address] [place] [address] Simón Ahumada MD [address] [facility] [address] [place], [place] [address] Social History Tobacco Use Types Packs/Day Years [...] HISTORY OF PRESENT ILLNESS Patient arrived at [facility] for an Jayla ([place]) visit. He was requesting to see [...] on filedocumented in this encounter Care Teams Oven Worker Relationship Specialty Start Date End Date [facility], [facility] [place] [address] [place], [place] [id number] PCP - General 10/08/11 08/03/16 Clinic, [address] [address] PCP - General 08/04/16 documented as of this encounter
--- OUTSIDE RECORDS SUMMARY | 2024-01-25 18:10 | XMS_ITS | Encounter Summary ---
Author Organization [place] Address [address] [place] [address]. [place] [address] Care Team Providers Care C2 Tactical Analysis Technician Name Role Phone [facility], [facility] [place] Primary Care Provider Clinic, [facility] Primary Care Provider Encounter Details Date Type Department Care Team (Late st Contact Info) Description 03/15/2012 Office Visit-[facility] [place] [id number] [facility] [address] [place] [phone] Vineet Young MD [address] [facility] [address] [place], [place] [address] Social History Tobacco Use Types Packs/Day Years [...] old Referring Physician: GENEVIEVE CANNON Referring Clinic: [facility] CURRENT DIAGNOSES 1. - CAD, 414.00 2. [...] post bypass surgery. Mr. Cali presented to [facility] with unstable angina in September 2011. On [...] details with Dr. Krueger, my colleague at [facility]. We both felt the patient was not a good candidate for percutaneous revascularization and in view of his instability he was transferred to [facility]. The patientthen underwent bypass surgery by Dr. [...] saw his primary caredoctor, Dr. Cannon from [facility]. He told me he underwent x-ray that did not show any prob lems at the sternal site. 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 Height- 74.50 BMI Measurement: [facility] Error: [AtlanteTrek][ODBC SQL Precipitator Operator Box Office Clerk][SQL Precipitator Operator]Divide by zero error encountered. - 17924 CONSTITUTIONAL cooperative, alert and oriented,well developed, well [...] or Naproxen. RECOMMENDATIONS: 1.I have asked my production officer Delores to make an appointment for the [...] months 2. F/U with Nina Landry, MSN, INTERNET CAFE MANAGER 1 month Vineet Young MD documented in this encounter Plan of Treatment Not on file documented as of this encounter Visit Diagnoses Not on filedocumented in this encounter Care Teams C2 Tactical Analysis Technician Relationship Specialty Start Date End Date [facility], [facility] [address] [place] [address] PCP - General 10/08/11 08/03/[address] [address] PCP - General 08/04/16 documented as of this encounter
--- OUTSIDE RECORDS SUMMARY | 2024-01-25 18:10 | XMS_ITS | Encounter Summary ---
Author Organization [place] Address [address] [place] [address] Care Team Providers Care Bedspread Cutter Name Role Phone Clinic, [facility] [place] Primary Care Provider Clinic, [facility] Primary Care Provider Encounter Details Date Type Department Care Team (Late st Contact Info) Description 11/06/2011 Office Visit-P INTERFACE P DEPT Sebas Bryson MD XXX RESIGNED XXX [place] [id number] Social History Tobacco Use Types Packs/Day Years [...] Bryson MD - 11/06/2011 2:30 PM CDT Technical Manager: Sebas Bryson Status: Final - Signature Encounter: 2011-11-06 14:30:00.000 Type: CV Surgery Letter Department of Surgery Division of Cardiovascular and Thoracic Surgery [place] Mail Code [address] [place] [address] [address] [facility] Physicians Cardiothoracic Surgery [address] [facility] [address] [facility] [address] November 06, 2011 Vineet Young MD [address] [place] [address] Mike Nugent MD [facility] [address] [facility] [address] RE: Paulino Mcbride : 1965 XAVIER: 11/06/2011 [...] metoprolol, simvastatin and Roxicodone. [facility]. He has had [...] by:Sebas Bryson M.D. Nov 11 2011 1:27PM POLYMER TESTER documented in this encounter Plan of Treatment Not on file documented as of this encounter Visit Diagnoses Not on filedocumented in this encounter Care Teams Bedspread Cutter Relationship Specialty Start Date End Date [facility], [place] [address] [place] [address] PCP - General 10/08/11 08/03/[address] [address] PCP - General 08/04/16 documented as of this encounter
--- OUTSIDE RECORDS SUMMARY | 2024-01-25 18:10 | XMS_ITS | Clinical Summary ---
Author Organization [facility] Address [address], [place] [address] Care Team Providers Care Med Specialist Name Role Phone Needs Pcp, Assignment Primary Care Provider [phone] Source Comments You are receiving this document as you are listed as the primary care provider,follow-up provider, or the patient has been referred to you for consultation.This is in compliance with the Medicare andOur [facility] Hospital[facility] EHR Incentive Program,which states Providers who transition their patient to another setting of careor provider of care or refers their patient to another provider of care shouldprovide summary care record for each transition of care or referral. [employer] Allergies Active Allergy Reactions Criticality Noted Date [...] 1965 Hep C Screening (Preventive Services) 1966 MTM Covered 1966 PSA Screening Discussion 1966 HIV Screening (Preventive Services) 1982 Adult Preventive Visit 1984 HepB (1) 1985 Cholesterol 2001 Zoster/Shingles (1 of 2) 2016 COVID-19 Vaccine (3 - 2022-2 4 season) 2024 08/25/2020, 08/04/2020 Influenza (#1) 2024 05/14/2020 DTaP/Tdap/Td (4 - Tdap) 03/28/2031 03/28/20 21, 09/16/2011, 04/16/2007 HepA Aged Out No longer [...] age to complete this topic Care Teams Med Specialist Relationship Specialty Start Date [place] [address] PCP - General 04/29/23
--- OUTSIDE RECORDS SUMMARY | 2024-01-25 18:10 | XMS_ITS | Clinical Summary ---
Author Organization [place] Address [address] [place] [address] Care Team Providers Care Stave Log Ripsaw Operator Name Role Phone [facility], [facility] Primary Care Provider Allergies Active Allergy Reactions [...] transplanted heart 10/23/2011 Overview: 3V CABG. 10/10/2011- [place] Mixed hyperlipidemia 07/23/2010 Resolved Problems Problem Noted Date Diagnosed Date Resolved Date Advanced directives, counseling/discussion 10/16/2011 10/17/2011 Overview: Discussed advance care planning with patient; information given to patient to review. Pt received [employer] packet. Jhoana Kelley, [facility] 10/16/2011 Unstable angina 10/10/2011 10/17/2011 Pain [...] 10/17/2011, 012 COVID-19 Vaccine (3 - season) 2024 08/25/2020, 08/04/2020 INFLUENZA VACCINE (#1) 2024 05/14/2020 [...] this topic Medical Devices Implanted Type Area Report Checker Device Identifier Shelf Expiration Date Model / Serial / Lot Imp Clip Horiz Multi Sm Yellow Implanted:Qty: 2 on 10/13/2011 at [facility] [id number] / / Procedures Procedure Name Priority Date/Time Associated Diagnosis Comments BASIC METABOLIC PANEL STAT 08/23/2021 11:20 AM CDT LIPID REFLEX TO DIRECT LDL PANEL Routine 10/11/2011 5:00 AM CDT from Last 3 Months or Most Recently Relevant to Health Maintenance Results * (ABNORMAL) Basic metabolic panel (08/23/2021 11:20 AM CDT) [facility] Sodium 137 133 - 144 mmol/L 08/23/2021 [...] and gender (Macario et al., NEJM, DOI: 10.1056/[id number]) Blood STRUCTURE OF RIGHT UPPER LIMB / Unknown Venipuncture / Unknown 08/23/2021 11:20 AM CDT 08/23/2021 11:27 AM CDT Severo Benjamin PA-C LAB - BLOOD ORDERABL ES LABORATORY [facility] Acute Care Lab [address] Lab (1st floor, no room number) [place] [address], [facility] [phone] * (ABNORMAL) Lipid panel reflex to direct LDL (10/11/2011 5:00 AM CDT) [facility] Signature Cholesterol 190 0 - 200 mg/dL [facility] Comment: LDL Cholesterol is the primary guide to therapy. The NCEP recommends further evaluation of: patients with cholesterol greater than 200 mg/dL if additional risk factors are present, cholesterol greater than 240 mg/dL, triglycerides greater than 150 mg/dL, or HDL less than 40 mg/dL. Triglycerides 209(H) 0 - 150 mg/dL [facility] HDL Cholesterol 48 40 - 110 mg/dL [facility] LDL Cholesterol Calculated 100 0 - 129 mg/dL [facility] Comment: LDL Cholesterol is the primary guide to therapy: LDL-cholesterol goal in high risk patients is <100 mg/dL and in very high risk patients is <70 mg/dL. VLDL-Cholesterol 42(H) 0 - 30 mg/dL [facility] Cholesterol/HDL Ratio 3.9 0.0 - 5.0 [facility] Blood specimen (specimen) 10/11/2011 5:00 AM CDT 10/11/2011 5:33 AM CDT Amilcar Kovacs MD LAB - BLOOD ORDERABL ES [facility] from Last 3 Months or Most Recently Relevant to Health Maintenance Advance Directives For more information, please contact: [phone] * Full Code (Latest Code Status on File) Date Activated Date Inactivated Comments 01/02/2014 5:50 PM 01/03/2014 9:50 PM * Full Code Date Activated Date Inactivated Comments 10/10/2011 11:15 PM 10/18/2011 8:18 PM Care Teams Stave Log Ripsaw Operator Relationship Specialty Start Date End Date Clinic, [address] [address] PCP - General 08/04/16
--- OUTSIDE RECORDS SUMMARY | 2024-01-25 18:10 | XMS_ITS | Clinical Summary ---
Author Organization [employer] [facility] Address [place], [place] [address] Care Team Providers Care Swing Grinder Name Role Phone Matthias Peralta MD Primary Care Provider Allergies Active Allergy Reactions [...] region 04/27/2018 Issue of repeat prescriptions 04/14/2012 Overview (04/14/2012): Pain contract signed. Neuropathic chest wall pain s/p CABG. Vicodin 5/500, Cymbalta, and Elavil daily. Working toward cutting back on Vicodin use. Angela Ross, .................... 04/14/2012 9:34 PM Major depression, single episode 04/14/2012 Neuropathic pain of chest 12/25/2011 CAD (coronary artery disease ), bypass graft transplanted heart 10/23/2011 Overview (10/23/2011): 3V CABG. 10/10/2011- [place] Mixed hyperlipidemia 07/23/2010 Displacement of intervertebr al [...] T Respiratory Rate 20 04/28/2018 9:29 AM GAMES MANAGER Oxygen Saturation 97% 02/15/2020 4:14 PM CDT [...] 06/10/2018, 03/15/2018 COVID-19 vaccine series (2022- season) 2024 Influenza for age 50-64 01/17/2024 Tdap Completed [...] CHOLESTEROL,TOTA L 216(H) 100 - 199 mg/dL [facility] TRIGLYCERIDES 338(H) <150 mg/dL [facility] HDL CHOLESTEROL 43 >40 mg/dL [facility] CHOL/HDL RATIO 5.02(H) <4.50 [facility] NON-HDL CHOLESTEROL 173 Undefined mg/dL [facility] LDL CHOLESTEROL 105 <131 mg/dL [facility] PATIENT STATUS Non-Fast ing [facility] Blood specimen (specimen) BLOOD SPECIMEN / Unknown 07/29/2012 2:08 PM CDT 07/29/2012 2:03 PM CDT Angela Ross DO CHEMISTRY [facility] INTERNAL ZIP [address] [place], [place] [id number] from Last 3 Months or Most Recently Relevant to Health Maintenance Care Teams Swing Grinder Relationship Specialty Start Date End Date Matthias Peralta MD [address] [place] [phone] PCP - General Family Practice 03/08/18
--- NOTE | 2024-01-25 18:15 | MR_ITS ---
[address] [address] Phone:?[phone] Fax:?[phone] Referring Physician Information: Bennett Palacios M.D. [address] [address] Phone:?[phone] Fax:?[phone] Patient:Tosin Mcbride D.O.B:?1965 Sex:?Male Phone:?[phone] [facility] MRN:?[id number] Exam Date:?01/25/2024 EXAM: MRI of the LEFT SHOULDER, without contrast CLINICAL INFORMATION: Male, 58 years old, with shoulder pain since November 2023 INDICATION: Evaluate for rotator cuff tear PRIOR SURGERY: None reported. PLAIN FILMS: Radiographs 12/18/2023 COMPARISONS: No prior MRIs available. TECHNICAL INFORMATION: Using a 1.5T MR scanner and a localizing surface coil: Coronals: PD, T2FS Sagittals: PDFS, T2 Axials: PD, PDFS SEDATION: None CONTRAST: None FINDINGS: Exam is mildly degraded secondary to patient motion. Bones: Proximal humerus: No fracture or marrow edema/pathology. No humeral Hill-Sachs or reverse Hill-Sachs lesion/impaction or contusion. Glenoid: No fracture or marrow edema/pathology. No osseous Bankart lesion. Rotator cuff and muscles/tendons: Supraspinatus: Full-thickness, partial width tearing of the supraspinatus at the critical zone 2.3 cm from the insertional measuring approximately 1.6 cm in AP dimension. Torn tendon fibers are retracted up to the level of the superior humeral head. Superimposed moderate tendinosis. Infraspinatus: Moderate infraspinatus tendinosis without rotator cuff tear or muscle belly atrophy. Teres minor: No tendinopathy, tear or atrophy. Subscapularis: Mild to moderate subscapularis tendinosis without rotator cuff tear. Deltoid: No strain or atrophy. Coracoacromial arch: Acromion morphology: The acromion has type II morphology. Note is made of meso- type os acromiale with minimal degenerative change across the synchondrosis. Small subacromial osseous spur. Acromiohumeral space: The acromiohumeral space mildly narrowed.. Coracohumeral space: The coracohumeral space is within normal limits. Acromioclavicular joint: Joint: Mild AC joint arthrosis with mild inferior osteophytosis. Ligaments: Coracoclavicular ligaments are intact. Bursae: Subacromial-subdeltoid: Fluid extends into the subacromial/subdeltoid bursa, in keeping with full-thickness rotator cuff tearing Subcoracoid: No convincing subcoracoid bursal thickening/bursitis. Biceps tendon: The long head of the biceps tendon is present within the bicipital groove. The intra-articular and extra-articular segments are intact without tendinosis, tenosynovitis, or displacement. Glenohumeral joint: Effusion/cyst: Small sized glenohumeral joint effusion. Articular cartilage: Humeral head: Diffuse grade 2 chondral thinning of the humeral head articular cartilage, with apparent 3 grade 3 chondral thinning of the central humeral head. Glenoid: No osteochondral abnormalities. Loose bodies: No discrete intra-articular body within the joint. Labrum:?Fraying and tearing is seen to involve the posterosuperior labrum. No other definite evidence for labral tear. No paralabral ganglion cyst is identified. Inferior glenohumeral ligament/axillary pouch:?Intact. The axillary pouch is normal in thickness and signal. No evidence of adhesive capsulitis or capsular injury. IMPRESSION: 1. Full-thickness, partial width tearing of the supraspinatus distal tendon measuring 1.6 cm in AP dimension. Superimposed moderate tendinosis. 2. Mild to moderate infraspinatus and subscapularis tendinosis without rotator cuff tear. 3. Fraying and tearing of the posterosuperior labrum. 4. Mild AC joint arthrosis with inferior osteophytosis. Along with small subacromial osseous spur this may predispose to clinical symptoms of subacromial impingement. Mild narrowing of the acromiohumeral space. 5. No tendinopathy, tear, or displacement of the long head of the biceps tendon. 6. Mild glenohumeral joint degenerative change. Small sized joint effusion. KME Electronically signed on 01/26/2024 2:53:00 PM by Bridgette Pfeiffer M.D.
== END 2024-01-25 18:07 | disposition home or self-care (01) ==
LOC: MRI 18:08
PROVIDERS: PCP Family Medicine; Visit Provider Orthopaedic Surgery
DX: M25.512 Pain in left shoulder (principal); M75.102 Unspecified rotator cuff tear or rupture of left shoulder, not specified as traumatic; M19.012 Primary osteoarthritis, left shoulder; M25.412 Effusion, left shoulder; M67.912 Unspecified disorder of synovium and tendon, left shoulder; S49.92XA Unspecified injury of left shoulder and upper arm, initial encounter
CPT/HCPCS: 73221

== ENCOUNTER 2024-02-04 07:57 | Outpatient (CLI) | payer OTHER, SELFPAY ==
--- OUTSIDE RECORDS SUMMARY | 2024-02-05 08:38 | XMS_ITS | Referral Summary ---
Author Organization [place] Address [address] [place] [address] Care Team Providers Care Meter Tester Polyphase Name Role Phone [facility], [facility] Primary Care Provider Allergies Active [...] transplanted heart 10/23/2011 Overview: 3V CABG. 10/10/2011- [place] Mixed hyperlipidemia 07/23/2010 Resolved Problems Problem Noted Date Diagnosed Date Resolved Date Advanced directives, counseling/discussion 10/16/2011 10/17/2011 Overview: Discussed advance care planning with patient; information given to patient to review. Pt received [employer] [id number] packet. Jhoana Kelley, [facility] 10/16/2011 Unstable angina 10/10/2011 10/17/2011 Pain [...] on file Medical Devices Implanted Type Area Recreation Leader Device Identifier Shelf Expiration Date Model / Serial / Lot Imp Clip Horiz Multi Sm Yellow Implanted:Qty: 2 on 10/13/2011 at [facility] [id number] / / Procedures Procedure Name Priority Date/Time [...] and gender (Macario et al., NEJM, DOI: 10.1056/[id number]) Blood STRUCTURE OF RIGHT UPPER LIMB / Unknown Venipuncture / Unknown 08/23/2021 11:20 AM CDT 08/23/2021 11:27 AM CDT Severo Benjamin PA-C LAB - BLOOD ORDERABL ES LABORATORY [facility] Acute Care Lab [address] Lab (1st floor, no room number) [place] [address] [phone] * (ABNORMAL) Lipid panel reflex to direct LDL (10/11/2011 5:00 AM CDT) Cholesterol 190 0 - 200 mg/dL [facility] Comment: LDL Cholesterol is the primary guide to therapy. The NCEP recommends further evaluation of: patients with cholesterol greater than 200 mg/dL if additional risk factors are present, cholesterol greater than 240 mg/dL, triglycerides greater than 150 mg/dL, or HDL less than 40 mg/dL. Triglycerides 209(H) 0 - 150 mg/dL [facility] HDL Cholesterol 48 40 - 110 mg/dL [facility] LDL Cholesterol Calculated 100 0 - 129 mg/dL [facility] Comment: LDL Cholesterol is the primary guide to therapy: LDL-cholesterol goal in high risk patients is <100 mg/dL and in very high risk patients is <70 mg/dL. VLDL-Cholesterol 42(H) 0 - 30 mg/dL [facility] Cholesterol/HDL Ratio 3.9 0.0 - 5.0 [facility] Blood specimen (specimen) 10/11/2011 5:00 AM CDT 10/11/2011 5:33 AM CDT Amilcar Kovacs MD LAB - BLOOD ORDERABL ES [facility] from Last 3 Months or Most Recently Relevant to Health Maintenance Advance Directives For more information, please contact: [phone] * Full Code (Latest Code Status on File) Date Activated Date Inactivated Comments 01/02/2014 5:50 PM 01/03/2014 9:50 PM * Full Code Date Activated Date Inactivated Comments 10/10/2011 11:15 PM 10/18/2011 8:18 PM Care Teams Meter Tester Polyphase Relationship Specialty Start Date End Date Clinic, [facility] [address] [place] [address] PCP - General 08/04/16
--- OUTSIDE RECORDS SUMMARY | 2024-02-05 08:38 | XMS_ITS | Encounter Summary ---
Author Organization [place] Address [address] [place] [address] Care Team Providers Care Sales Consultant Insurance Name Role Phone Clinic, [facility] [place] Primary Care Provider Clinic, [facility] Primary Care Provider Encounter Details Date Type Department Care Team (Late st Contact Info) Description 11/06/2011 Office Visit-P INTERFACE P DEPT Sebas Bryson MD XXX RESIGNED XXX [place] [id number] Social History Tobacco Use Types Packs/Day Years [...] Bryson MD - 11/06/2011 2:30 PM CDT Boat Hand: Sebas Bryson Status: Final - Signature Encounter: 2011-11-06 14:30:00.000 Type: CV Surgery Letter Department of Surgery Division of Cardiovascular and Thoracic Surgery [place] Mail Code [address] [address] [facility] Physicians Cardiothoracic Surgery [address] [facility] [address] [facility] [address] November 06, 2011 Vineet Young MD [address] [place] [address] Mike Nugent MD [facility] [address] [facility] [address] [address] RE: Paulino Mcbride : 1965 XAVIER: 11/06/2011 [...] simvastatin and Roxicodone. The patient is [facility] participating in cardiac rehabilitation. He has had [...] by:Sebas Bryson M.D. Nov 11 2011 1:27PM FOOD EDITOR documented in this encounter Plan of Treatment Not on file documented as of this encounter Visit Diagnoses Not on filedocumented in this encounter Care Teams Sales Consultant Insurance Relationship Specialty Start Date End Date [facility], [place] [address] [place] [address] PCP - General 10/08/11 08/03/[address] [address] PCP - General 08/04/16 documented as of this encounter
--- OUTSIDE RECORDS SUMMARY | 2024-02-05 08:38 | XMS_ITS | Continuity of Care Document ---
Author Organization [facility] Address [address] [place] [address] Phone Care Team Providers Care Instructional Media Services Technician Name Role Phone [place] Unavailable Unavailable Advance Directives Directive Yes / No Effective Date File Name No Information Encounters Encounter Description Practice Location Reason(s) For Visit Diagnoses Date Provider Providers Copied on Encounter [facility] , [address], [place], [place], [id number], [place] tel:[phone] No Information Yonathan Sheppard. [facility], [address] [place] [address], [place], [place], [id number], [place]. tel:[phone] Family History Family Member Type Diagnosis Age At Onset No Information Payers Payer name Insurance type Covered democrat ID Authoriza tion(s) No Information Social History [...]
--- OUTSIDE RECORDS SUMMARY | 2024-02-05 08:38 | XMS_ITS | Clinical Summary ---
Author Organization [place] Address [address] [place] [address] Care Team Providers Care Cell Room Supervisor Name Role Phone [facility], [facility] Primary Care Provider Allergies Active Allergy Reactions [...] transplanted heart 10/23/2011 Overview: 3V CABG. 10/10/2011- [place] Mixed hyperlipidemia 07/23/2010 Resolved Problems Problem Noted Date Diagnosed Date Resolved Date Advanced directives, counseling/discussion 10/16/2011 10/17/2011 Overview: Discussed advance care planning with patient; information given to patient to review. Pt received Mobile[employer]ack packet. Jhoana Kelley, [facility] 10/16/2011 Unstable angina 10/10/2011 10/17/2011 Pain [...] this topic Medical Devices Implanted Type Area Body Piercer Device Identifier Shelf Expiration Date Model / Serial / Lot Imp Clip Horiz Multi Sm Yellow Implanted:Qty: 2 on 10/13/2011 at [facility] [id number] / / Procedures Procedure Name Priority Date/Time Associated Diagnosis Comments BASIC METABOLIC PANEL STAT 08/23/2021 11:20 AM CDT LIPID REFLEX TO DIRECT LDL PANEL Routine 10/11/2011 5:00 AM CDT from Last 3 Months or Most Recently Relevant to Health Maintenance Results * (ABNORMAL) Basic metabolic panel (08/23/2021 11:20 AM CDT) [facility] Sodium 137 133 - 144 mmol/L 08/23/2021 [...] and gender (Macario et al., NEJM, DOI: [id number]) Blood STRUCTURE OF RIGHT UPPER LIMB / Unknown Venipuncture / Unknown 08/23/2021 11:20 AM CDT 08/23/2021 11:27 AM CDT Severo Benjamin PA-C LAB - BLOOD ORDERABL ES LABORATORY [facility] Acute [facility] Lab [address] Lab (1st floor, no room number) [place] [address], [facility] [phone] * (ABNORMAL) Lipid panel reflex to direct LDL (10/11/2011 5:00 AM CDT) [facility] Signature Cholesterol 190 0 - 200 mg/dL [facility] Comment: LDL Cholesterol is the primary guide to therapy. The NCEP recommends further evaluation of: patients with cholesterol greater than 200 mg/dL if additional risk factors are present, cholesterol greater than 240 mg/dL, triglycerides greater than 150 mg/dL, or HDL less than 40 mg/dL. Triglycerides 209(H) 0 - 150 mg/dL [facility] HDL Cholesterol 48 40 - 110 mg/dL [facility] LDL Cholesterol Calculated 100 0 - 129 mg/dL [facility] Comment: LDL Cholesterol is the primary guide to therapy: LDL-cholesterol goal in high risk patients is <100 mg/dL and in very high risk patients is <70 mg/dL. VLDL-Cholesterol 42(H) 0 - 30 mg/dL [facility] Cholesterol/HDL Ratio 3.9 0.0 - 5.0 [facility] Blood specimen (specimen) 10/11/2011 5:00 AM CDT 10/11/2011 5:33 AM CDT Amilcar Kovacs MD LAB - BLOOD ORDERABL ES [facility] from Last 3 Months or Most Recently Relevant to Health Maintenance Advance Directives For more information, please contact: [phone] * Full Code (Latest Code Status on File) Date Activated Date Inactivated Comments 01/02/2014 5:50 PM 01/03/2014 9:50 PM * Full Code Date Activated Date Inactivated Comments 10/10/2011 11:15 PM 10/18/2011 8:18 PM Care Teams Cell Room Supervisor Relationship Specialty Start Date End Date Clinic, [address] [address] PCP - General 08/04/16
--- OUTSIDE RECORDS SUMMARY | 2024-02-05 08:38 | XMS_ITS | Clinical Summary ---
Author Organization [employer] [facility] Address [place], [place] [address] Care Team Providers Care Supervisor Fusing Room Name Role Phone Matthias Peralta MD Primary Care Provider [phone] Allergies Active Allergy Reactions Criticality Noted Date [...] heart 10/23/2011 Overview (10/23/2011): 3V CABG. 10/10/2011- [place] Mixed hyperlipidemia 07/23/2010 Displacement of intervertebr al [...] T Respiratory Rate 20 04/28/2018 9:29 AM SPECIAL EDUCATION TUTOR Oxygen Saturation 97% 02/15/2020 4:14 PM CDT [...] CHOLESTEROL,TOTA L 216(H) 100 - 199 mg/dL [facility] TRIGLYCERIDES 338(H) <150 mg/dL [facility] HDL CHOLESTEROL 43 >40 mg/dL [facility] CHOL/HDL RATIO 5.02(H) <4.50 [facility] NON-HDL CHOLESTEROL 173 Undefined mg/dL [facility] LDL CHOLESTEROL 105 <131 mg/dL [facility] PATIENT STATUS Non-Fast ing [facility] Blood specimen (specimen) BLOOD SPECIMEN / Unknown 07/29/2012 2:08 PM CDT 07/29/2012 2:03 PM CDT Angela Ross DO CHEMISTRY [facility] LABORATORY INTERNAL ZIP [address] [place], [place] [id number] from Last 3 Months or Most Recently Relevant to Health Maintenance Care Teams Supervisor Fusing Room Relationship Specialty Start Date End Date Matthias Peralta MD [address] [place] [phone] PCP - General Family Practice 03/08/18
--- OUTSIDE RECORDS SUMMARY | 2024-02-05 08:38 | XMS_ITS | Encounter Summary ---
Author Organization [facility] Address [address] [place] [address] Care Team Providers Care State Federal Relations Deputy Director Name Role Phone Clinic, [facility] [place] Primary Care Provider Clinic, [facility] Primary Care Provider Encounter Details Date Type Department Care Team (Late st Contact Info) Description 03/18/2012 Office Visit-P INTERFACE P DEPT Sebas Bryson MD XXX RESIGNED XXX [place] [id number] Social History Tobacco Use Types Packs/Day Years [...] Bryson MD - 03/18/2012 2:30 PM CDT Statement Services Representative: Sebas Bryson Status: Final - Signature Encounter: 2012-03-18 14:30:00.000 Type: CV Surgery Visit Department of Surgery Division of Cardiovascular and Thoracic Surgery [place] Mail Code [address] [place] [address] [address] [facility] Physicians Cardiothoracic Surgery [address] [facility] [address] [facility] [address] RE: Paulino Mcbride : 1965 XAVIER: 03/18/2012 CARDIOVASCULAR SURGERY VISIT--[facility] POSTOPERATIVE VISIT NOTE: Mr. 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 Apr 20 2012 1:44PM SYNCHRONIZER HRONIZER documented in this encounter Plan of Treatment Not on file documented as of this encounter Visit Diagnoses Not on filedocumented in this encounter Care Teams State Federal Relations Deputy Director Relationship Specialty Start Date End Date [employer], [facility] [place] [address] [place] [address] PCP - General 10/08/11 08/03/16 [employer], [address] [address] PCP - General 08/04/16 documented as of this encounter
--- OUTSIDE RECORDS SUMMARY | 2024-02-05 08:38 | XMS_ITS | Encounter Summary ---
Author Organization [facility] Address [address] [place] [address]. [place] [address] Care Team Providers Care Stage Director Name Role Phone [facility], [facility] Primary Care Provider Clinic, [facility] Primary Care Provider Encounter Details Date Type Department Care Team (Late st Contact Info) Description 03/15/2012 Office Visit-[facility] Heart Clinic [place] [id number] [facility] [address] [place] [phone] Vineet Young MD [address] [facility] [address] [place], [place] [phone] Social History Tobacco Use Types Packs/Day Years [...] old Referring Physician: GENEVIEVE CANNON Referring Clinic: [facility] CURRENT DIAGNOSES 1. - CAD, 414.00 2. [...] post bypass surgery. Mr. Cali presented to [facility] with unstable angina in September 2011. On [...] details with Dr. Krueger, my colleague at [facility]. We both felt the patient was not a good candidate for percutaneous revascularization and in view of his instability he was transferred to [facility]. The patientthen underwent bypass surgery [...] saw his primary caredoctor, Dr. Cannon from [facility]. He told me he underwent x-ray that did not show any prob lems at the sternal site. 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 Height- 74.50 BMI Measurement: [facility] Error: [kissnofrog][ODBC SQL Wood Heel Back Liner Wire Mill Operator][SQL Wood Heel Back Liner]Divide by zero error encountered. - 553[address] CONSTITUTIONAL cooperative, alert and oriented,well developed, well [...] or Naproxen. RECOMMENDATIONS: 1.I have asked my film examiner Delorse to make an appointment for the patient [...] months 2. F/U with Nina Landry, MSN, SMALL LOT OPERATOR 1 month Vineet Young MD documented in this encounter Plan of Treatment Not on file documented as of this encounter Visit Diagnoses Not on filedocumented in this encounter Care Teams Stage Director Relationship Specialty Start Date End Date [facility], [facility] [address] [place] [address] PCP - General 10/08/11 08/03/[address] [address] PCP - General 08/04/16 documented as of this encounter
--- OUTSIDE RECORDS SUMMARY | 2024-02-05 08:38 | XMS_ITS | Clinical Summary ---
Author Organization On license of [facility] Address [address] [address] Care Team Providers Care International Trade Teacher Name Role Phone Needs Pcp, Assignment Primary Care Provider [phone] Source Comments You are receiving this document as you are listed as the primary care provider,follow-up provider, or the patient has been referred to you for consultation.This is in compliance with the Medicare and[facility] Centercaid EHR Incentive Program,which states Providers who transition their patient to another setting of careor provider of care or refers their patient to another provider of care shouldprovide summary care record for each transition of care or referral. [employer]ingle - Share Your Passion! Allergies Active Allergy Reactions Criticality Noted Date [...] Zoster/Shingles (1 of 2) 2016 COVID-19 Vaccine (2023-2 5 season) 2024 08/25/2020, 08/04/2020 Influenza (#1) 2024 [...] age to complete this topic Care Teams International Trade Teacher Relationship Specialty Start Date [place] [address] PCP - General 04/29/23
--- OUTSIDE RECORDS SUMMARY | 2024-02-05 08:38 | XMS_ITS | Continuity of Care Document ---
Author Organization [facility] Address [address] [place] [address] Phone Care Team Providers Care Employment Counselor Name Role Phone Aspen Styles NP, NP Unavailable Unavailable Medications Medication Instructions Dosage Effective Dates (start - stop) Status Comments VICODIN (unknown strength) Unknown Not Available - Active Advance Directives Directive Yes / No Effective Date File Name No Information Encounters Encounter Description Practice Location Reason(s) For Visit Diagnoses Date Provider Providers Copied on Encounter [facility], [address], [place], [place], [id number], [place] tel:[phone] [facility] No Information Jensen Louise. [address] [facility] [address], [facility], [place], [address], [place]. tel:[phone] Referring Provider: Sebastian Rodriguez MD, [facility] [address] [place] [address] [address], [place], [address]. tel:[phone] Family History Family Member Type Diagnosis Age At Onset No Information Payers Payer name Insurance type Covered alliance party ID Authoriza tion(s) No Information Social [...]
--- OUTSIDE RECORDS SUMMARY | 2024-02-05 08:38 | XMS_ITS | Encounter Summary ---
Author Organization [place] Address [address] [place] [address]. [place] [address] Care Team Providers Care Beeswax Bleacher Name Role Phone Clinic, [facility] [place] Primary Care Provider Clinic, [facility] Primary Care Provider Encounter Details Date Type Department Care Team (Late st Contact Info) Description 01/26/2012 Office Visit-[facility] Heart Clinic [place] [id number] [facility] [address] [place] [phone] Simón Ahumada MD [address] [facility] [address] [place], [place] [phone] Social History Tobacco Use Types Packs/Day Years [...] HISTORY OF PRESENT ILLNESS Patient arrived at [facility] for an [place] ([place] visit. He was requesting to see [...] on filedocumented in this encounter Care Teams Beeswax Bleacher Relationship Specialty Start Date End Date [facility], [facility] [place] [address] [place], [place] [phone] PCP - General 10/08/11 08/03/16 Clinic, [address] [address] PCP - General 08/04/16 documented as of this encounter
== END 2024-02-04 07:58 | disposition home or self-care (01) ==
LOC: NFLDREF 02-05 08:36
PROVIDERS: PCP Family Medicine; Referring Provider Family Medicine; Visit Provider Family Medicine
DX: E78.5 Hyperlipidemia, unspecified (principal); Z12.5 Encounter for screening for malignant neoplasm of prostate
CPT/HCPCS: 80053; 80061; G0103

== ENCOUNTER 2024-02-10 15:21 | Outpatient (CLI) | payer OTHER, SELFPAY ==
--- OUTSIDE RECORDS SUMMARY | 2024-02-10 15:23 | XMS_ITS | Continuity of Care Document ---
Author Organization [facility] Address [address] [place] [address] Phone Care Team Providers Care Rabbit Fancier Name Role Phone Aspen Styles NP, NP Unavailable Unavailable Medications Medication Instructions Dosage Effective Dates (start - stop) Status Comments VICODIN (unknown strength) Unknown Not Available - Active Advance Directives Directive Yes / No Effective Date File Name No Information Encounters Encounter Description Practice Location Reason(s) For Visit Diagnoses Date Provider Providers Copied on Encounter [facility], [address], [place], [place], [id number], [place] tel:[phone] [facility] No Information Jensen Louise. [address] [facility] [address], [facility], [place], [address], [place]. tel:[phone] Referring Provider: Sebastian Rodriguez MD, [facility] [address] [place] [address] [address], [place], [address]. tel:[phone] Family History Family Member Type Diagnosis Age [...]
--- OUTSIDE RECORDS SUMMARY | 2024-02-10 15:23 | XMS_ITS | Clinical Summary ---
Author Organization [facility] Address [address], [place] [address] Care Team Providers Care Video And Sound Recorder Name Role Phone Needs Pcp, Assignment Primary Care Provider [phone] Source Comments You are receiving this document as you are listed as the primary care provider,follow-up provider, or the patient has been referred to you for consultation.This is in compliance with the Medicare andMadison Healthcaid EHR Incentive Program,which states Providers who transition their patient to another setting of careor provider of care or refers their patient to another provider of care shouldprovide summary care record for each transition of care or referral. [employer] Allergies Active Allergy Reactions Criticality Noted Date [...] age to complete this topic Care Teams Video And Sound Recorder Relationship Specialty Start Date End Date Needs [place] [address] PCP - General 04/29/23
--- OUTSIDE RECORDS SUMMARY | 2024-02-10 15:23 | XMS_ITS | Encounter Summary ---
Author Organization [facility] Address [address] [place] [address] Care Team Providers Care Aviation Safety Equipment Technician Name Role Phone Clinic, [facility] [place] Primary Care Provider Clinic, [facility] Primary Care Provider Encounter Details Date Type Department Care Team (Late st Contact Info) Description 03/18/2012 Office Visit-P INTERFACE P DEPT Sebas Bryson MD XXX RESIGNED XXX [place] W[place] [id number] Social History Tobacco Use Types Packs/Day Years [...] Bryson MD - 03/18/2012 2:30 PM CDT Care Nurse Rn: Sebas Bryson Status: Final - Signature Encounter: 2012-03-18 14:30:00.000 Type: CV Surgery Visit Department of Surgery Division of Cardiovascular and Thoracic Surgery [place] Mail Code 495 [address] [address] [facility] Physicians Cardiothoracic Surgery [address] [facility] [address] [facility] [address] RE: Paulino Mcbride : 1965 XAVIER: 03/18/2012 CARDIOVASCULAR SURGERY VISIT--[facility] POSTOPERATIVE VISIT NOTE: Mr. 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 Apr 20 2012 1:44PM BLEACH TESTER CH TESTER documented in this encounter Plan of Treatment Not on file documented as of this encounter Visit Diagnoses Not on filedocumented in this encounter Care Teams Aviation Safety Equipment Technician Relationship Specialty Start Date End Date [facility], [place] [address] [place] [address] PCP - General 10/08/11 08/03/16 [facility], [address] [address] PCP - General 08/04/16 documented as of this encounter
--- OUTSIDE RECORDS SUMMARY | 2024-02-10 15:23 | XMS_ITS | Clinical Summary ---
Author Organization [employer] [facility] Address [place], [place] [address] Care Team Providers Care Medicaid Business Analyst Name Role Phone Matthias Peralta MD Primary Care Provider [phone] Allergies Active Allergy Reactions Criticality Noted Date [...] heart 10/23/2011 Overview (10/23/2011): 3V CABG. 10/10/2011- [place] Mixed hyperlipidemia 07/23/2010 Displacement of intervertebr al [...] T Respiratory Rate 20 04/28/2018 9:29 AM WASH PLANT OPERATOR Oxygen Saturation 97% 02/15/2020 4:14 PM CDT [...] CHOLESTEROL,TOTA L 216(H) 100 - 199 mg/dL [facility] TRIGLYCERIDES 338(H) <150 mg/dL [facility] HDL CHOLESTEROL 43 >40 mg/dL [facility] CHOL/HDL RATIO 5.02(H) <4.50 [facility] NON-HDL CHOLESTEROL 173 Undefined mg/dL [facility] LDL CHOLESTEROL 105 <131 mg/dL [facility] PATIENT STATUS Non-Fast ing [facility] Blood specimen (specimen) BLOOD SPECIMEN / Unknown 07/29/2012 2:08 PM CDT 07/29/2012 2:03 PM CDT Angela Ross DO CHEMISTRY [facility]ORY INTERNAL ZIP [address] [place], [place] [phone] from Last 3 Months or Most Recently Relevant to Health Maintenance Care Teams Medicaid Business Analyst Relationship Specialty Start Date End Date Matthias Peralta MD [address] [place] [phone] PCP - General Family Practice 03/08/18
--- OUTSIDE RECORDS SUMMARY | 2024-02-10 15:23 | XMS_ITS | Encounter Summary ---
Author Organization [place] Address [address] [place] [address]. [place] [address] Care Team Providers Care Stem Crusher Name Role Phone Clinic, [facility] [place] Primary Care Provider Clinic, [facility] Primary Care Provider Encounter Details Date Type Department Care Team (Late st Contact Info) Description 03/15/2012 Office Visit-[facility] Heart Clinic [place] [id number] [facility] [address] [place] [phone] Vineet Young MD [address] [facility] [address] [place], [place] [address] Social History Tobacco Use Types Packs/Day Years [...] old Referring Physician: GENEVIEVE CANNON Referring Clinic: [facility] CURRENT DIAGNOSES 1. - CAD, 414.00 [...] post bypass surgery. Mr. Cali presented to [facility] with unstable angina in September 2011. [...] details with Dr. Krueger, my colleague at [facility]. We both felt the patient was not a good candidate for percutaneous revascularization and in view of his instability he was transferred to [facility]. The patientthen underwent bypass surgery by Dr. [...] saw his primary caredoctor, Dr. Cannon from [facility]. He told me he underwent x-ray that did not show any prob lems at the sternal site. 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 Height- 74.50 BMI Measurement: [facility] Error: [Sybari][ODBC SQL Elocution Teacher Hadoop Developer][SQL Elocution Teacher]Divide by zero error encountered. - [id number] CONSTITUTIONAL cooperative, alert and oriented,well developed, well [...] or Naproxen. RECOMMENDATIONS: 1.I have asked my char filter tank tender Delores to make an appointment for the [...] months 2. F/U with Nina Landry, MSN, THERMOSPRAY OPERATOR 1 month Vineet Young MD documented in this encounter Plan of Treatment Not on file documented as of this encounter Visit Diagnoses Not on filedocumented in this encounter Care Teams Stem Crusher Relationship Specialty Start Date End Date [facility], [facility] [address] [place] [address] PCP - General 10/08/11 08/03/[address] [address] PCP - General 08/04/16 documented as of this encounter
--- OUTSIDE RECORDS SUMMARY | 2024-02-10 15:23 | XMS_ITS | Referral Summary ---
Author Organization [place] Address [address] [place] [address] Care Team Providers Care Risk Reduction Counselor Name Role Phone [facility], [facility] Primary Care Provider Allergies Active Allergy Reactions [...] transplanted heart 10/23/2011 Overview: 3V CABG. 10/10/2011- [place] Mixed hyperlipidemia 07/23/2010 Resolved Problems Problem Noted Date Diagnosed Date Resolved Date Advanced directives, counseling/discussion 10/16/2011 10/17/2011 Overview: Discussed advance care planning with patient; information given to patient to review. Pt received [email or web address] packet. Jhoana Kelley, [facility] 10/16/2011 Unstable angina 10/10/2011 10/17/2011 Pain in [...] on file Medical Devices Implanted Type Area Tank Cooper Device Identifier Shelf Expiration Date Model / Serial / Lot Imp Clip Horiz Multi Sm Yellow Implanted:Qty: 2 on 10/13/2011 at [facility] [id number] / / Procedures Procedure Name Priority Date/Time [...] and gender (Macario et al., NEJM, DOI: [id number]) Blood STRUCTURE OF RIGHT UPPER LIMB / Unknown Venipuncture / Unknown 08/23/2021 11:20 AM CDT 08/23/2021 11:27 AM CDT Severo Benjamin PA-C LAB - BLOOD ORDERABL ES LABORATORY [facility] Acute Care Lab [address] Lab (1st floor, no room number) [place] [address] [phone] * (ABNORMAL) Lipid panel reflex to direct LDL (10/11/2011 5:00 AM CDT) Cholesterol 190 0 - 200 mg/dL [facility] Comment: LDL Cholesterol is the primary guide to therapy. The NCEP recommends further evaluation of: patients with cholesterol greater than 200 mg/dL if additional risk factors are present, cholesterol greater than 240 mg/dL, triglycerides greater than 150 mg/dL, or HDL less than 40 mg/dL. Triglycerides 209(H) 0 - 150 mg/dL [facility] HDL Cholesterol 48 40 - 110 mg/dL [facility] LDL Cholesterol Calculated 100 0 - 129 mg/dL [facility] Comment: LDL Cholesterol is the primary guide to therapy: LDL-cholesterol goal in high risk patients is <100 mg/dL and in very high risk patients is <70 mg/dL. VLDL-Cholesterol 42(H) 0 - 30 mg/dL [facility] Cholesterol/HDL Ratio 3.9 0.0 - 5.0 [facility] Blood specimen (specimen) 10/11/2011 5:00 AM CDT 10/11/2011 5:33 AM CDT Amilcar Kovacs MD LAB - BLOOD ORDERABL ES [facility] from Last 3 Months or Most Recently Relevant to Health Maintenance Advance Directives For more information, please contact: [phone] * Full Code (Latest Code Status on File) Date Activated Date Inactivated Comments 01/02/2014 5:50 PM 01/03/2014 9:50 PM * Full Code Date Activated Date Inactivated Comments 10/10/2011 11:15 PM 10/18/2011 8:18 PM Care Teams Risk Reduction Counselor Relationship Specialty Start Date End Date Clinic, [facility] [address] [place] [address] PCP - General 08/04/16
--- OUTSIDE RECORDS SUMMARY | 2024-02-10 15:23 | XMS_ITS | Encounter Summary ---
Author Organization [facility] Address [address] [place] [address] Care Team Providers Care Plant Technician Name Role Phone Clinic, [facility] [place] Primary Care Provider Clinic, [facility] Primary Care Provider Encounter Details Date Type Department Care Team (Late st Contact Info) Description 11/06/2011 Office Visit-P INTERFACE P DEPT Sebas Bryson MD XXX RESIGNED XXX [place] [id number] Social History Tobacco Use Types Packs/Day Years [...] Bryson MD - 11/06/2011 2:30 PM CDT Port Cdl A Driver: Sebas Bryson Status: Final - Signature Encounter: 2011-11-06 14:30:00.000 Type: CV Surgery Letter Department of Surgery Division of Cardiovascular and Thoracic Surgery [place] Mail Code [address] [address] [facility] Cardiothoracic Surgery [address] [facility] [address] [facility] [address] November 06, 2011 Vineet Young MD [address] [place] [address] Mike Nugent MD [facility] [address] [facility] [address] RE: Paulino Mcbride : 1965 XAVIER: 11/06/2011 [...] metoprolol, simvastatin and Roxicodone. The [facility]. He [...] by:Sebas Bryson M.D. Nov 11 2011 1:27PM DRAFTER documented in this encounter Plan of Treatment Not on file documented as of this encounter Visit Diagnoses Not on filedocumented in this encounter Care Teams Plant Technician Relationship Specialty Start Date End Date [facility], [facility] [address] [place] [address] PCP - General 10/08/11 08/03/[address] [address] PCP - General 08/04/16 documented as of this encounter
--- OUTSIDE RECORDS SUMMARY | 2024-02-10 15:23 | XMS_ITS | Encounter Summary ---
Author Organization [facility] Address [address] [place] [address]. [place] [address] Care Team Providers Care Telephone Clerk Name Role Phone [facility], [facility] [place] Primary Care Provider Clinic, [facility] Primary Care Provider Encounter Details Date Type Department Care Team (Late st Contact Info) Description 01/26/2012 Office Visit-[facility] [place] [address] [facility] [address] [place] [phone] Simón Ahumada MD [address] [facility] [address] [place], [place] 3[address] Social History Tobacco Use Types Packs/Day Years [...] HISTORY OF PRESENT ILLNESS Patient arrived at [place] for an [place] ([place] visit. He was requesting to see [...] on filedocumented in this encounter Care Teams Telephone Clerk Relationship Specialty Start Date End Date [facility], [place] [address] [address] [place], [place] [id number] PCP - General 10/08/11 08/03/16 Clinic, [address] [address] PCP - General 08/04/16 documented as of this encounter
--- OUTSIDE RECORDS SUMMARY | 2024-02-10 15:23 | XMS_ITS | Continuity of Care Document ---
Author Organization [facility] Address [address] [place] [address] Phone Care Team Providers Care Assistant Sales Manager Name Role Phone Silver Sun Unavailable Unavailable Advance Directives Directive Yes / No Effective Date File Name No Information Encounters Encounter Description Practice Location Reason(s) For Visit Diagnoses Date Provider Providers Copied on Encounter [facility] , [address], [place], [place], [id number], [place] tel:[phone] No Information Yonathan Sheppard. [facility], [address] [place] [address], [place], [place], [id number], [place]. tel:[phone] Family History Family Member Type Diagnosis Age [...]
--- OUTSIDE RECORDS SUMMARY | 2024-02-10 15:23 | XMS_ITS | Clinical Summary ---
Author Organization [facility] Address [address] [place] [address] Care Team Providers Care Pool Cleaner Name Role Phone [facility], [facility] Primary Care Provider Allergies Active Allergy Reactions [...] transplanted heart 10/23/2011 Overview: 3V CABG. 10/10/2011- [facility] Mixed hyperlipidemia 07/23/2010 Resolved Problems Problem Noted Date Diagnosed Date Resolved Date Advanced directives, counseling/discussion 10/16/2011 10/17/2011 Overview: Discussed advance care planning with patient; information given to patient to review. Pt received Pep[employer] packet. Jhoana Kelley, [facility] 10/16/2011 Unstable angina 10/10/2011 10/17/2011 [...] CARE PLANNING 10/16/2016 10/17/2011, 012 COVID-19 Vaccine ( season) 2024 08/25/2020, 08/04/2020 INFLUENZA VACCINE (#1) [...] this topic Medical Devices Implanted Type Area Mold Dresser Device Identifier Shelf Expiration Date Model / Serial / Lot Imp Clip Horiz Multi Sm Yellow Implanted:Qty: 2 on 10/13/2011 at [facility] [id number] / / Procedures Procedure Name Priority Date/Time Associated Diagnosis Comments BASIC METABOLIC PANEL STAT 08/23/2021 11:20 AM CDT LIPID REFLEX TO DIRECT LDL PANEL Routine 10/11/2011 5:00 AM CDT from Last 3 Months or Most Recently Relevant to Health Maintenance Results * (ABNORMAL) Basic metabolic panel (08/23/2021 11:20 AM CDT) [facility] Sodium 137 133 - 144 [...] and gender (Macario et al., NEJM, DOI: 10.1056/[id number]) Blood STRUCTURE OF RIGHT UPPER LIMB / Unknown Venipuncture / Unknown 08/23/2021 11:20 AM CDT 08/23/2021 11:27 AM CDT Severo Benjamin PA-C LAB - BLOOD ORDERABL ES LABORATORY [facility] Acute Care Lab [address] [place] [address] Lab (1st floor, no room number) [place] [address], [facility] [phone] * (ABNORMAL) Lipid panel reflex to direct LDL (10/11/2011 5:00 AM CDT) [facility] Signature Cholesterol 190 0 - 200 mg/dL [facility] Comment: LDL Cholesterol is the primary guide to therapy. The NCEP recommends further evaluation of: patients with cholesterol greater than 200 mg/dL if additional risk factors are present, cholesterol greater than 240 mg/dL, triglycerides greater than 150 mg/dL, or HDL less than 40 mg/dL. Triglycerides 209(H) 0 - 150 mg/dL [facility] HDL Cholesterol 48 40 - 110 mg/dL [facility] LDL Cholesterol Calculated 100 0 - 129 mg/dL [facility] Comment: LDL Cholesterol is the primary guide to therapy: LDL-cholesterol goal in high risk patients is <100 mg/dL and in very high risk patients is <70 mg/dL. VLDL-Cholesterol 42(H) 0 - 30 mg/dL [facility] Cholesterol/HDL Ratio 3.9 0.0 - 5.0 [facility] Blood specimen (specimen) 10/11/2011 5:00 AM CDT 10/11/2011 5:33 AM CDT Amilcar Kovacs MD LAB - BLOOD ORDERABL ES [facility] from Last 3 Months or Most Recently Relevant to Health Maintenance Advance Directives For more information, please contact: [phone] * Full Code (Latest Code Status on File) Date Activated Date Inactivated Comments 01/02/2014 5:50 PM 01/03/2014 9:50 PM * Full Code Date Activated Date Inactivated Comments 10/10/2011 11:15 PM 10/18/2011 8:18 PM Care Teams Pool Cleaner Relationship Specialty Start Date End Date Clinic, [address] [address] PCP - General 08/04/16
--- NOTE | 2024-02-10 15:30 | MR_ITS ---
[address] [address] Phone:?[phone] Fax:?[phone] Referring Physician Information: Bennett Palacios M.D. [address] [facility] [address] Phone:?[phone] Fax:?[phone] Patient:Tosin Stanley.Ashok.B:?1965 Sex:?Male Phone:?[phone] [facility] MRN:?[id number] Exam Date:?02/10/2024 EXAM: MRI OF THE RIGHT FEMUR, WITHOUT CONTRAST CLINICAL: Evaluate for hamstring injury. COMPARISONS: None available. TECHNICAL: Multiplanar multisequence MRI of the right femur was obtained without contrast. Coronal STIR, coronal T1, coronal T2, axial T1 axial PD fat-sat sequences of the bilateral femurs/thighs were obtained. Sagittal STIR sequences of the right femur/thigh were also obtained. SEDATION: None. CONTRAST: None. FINDINGS: There is moderate to high-grade partial tearing involving the proximal right hamstring tendons at the ischial tuberosity attachment, superimposed upon tendinosis. Associated adjacent edema extending along the periphery of the right quadratus femoris and adductor komal muscles. No evidence of complete hamstring tendon rupture or retraction. There is mild tendinosis and possibly minimal partial tearing of the proximal left hamstring tendons at the ischial tuberosity attachment. No additional myotendinous injury identified. 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 No evidence of bone marrow edema or fracture involving the bilateral femurs. IMPRESSION: 1. Moderate to high-grade partial tearing of the proximal right hamstring tendons at the ischial tuberosity attachment superimposed upon tendinosis. 2. Mild tendinosis and possibly minimal partial tearing of the proximal left hamstring tendons at the ischial tuberosity attachment. 3. Minimal changes of arthrosis involving the pubic symphysis. JCZ Electronically signed on 02/11/2024 8:52:00 AM by Silver Valdez D.O.
== END 2024-02-10 15:22 | disposition home or self-care (01) ==
LOC: MRI 15:21
PROVIDERS: PCP Family Medicine; Visit Provider Orthopaedic Surgery
DX: S76.311A Strain of muscle, fascia and tendon of the posterior muscle group at thigh level, right thigh, initial encounter (principal); S76.811A Strain of other specified muscles, fascia and tendons at thigh level, right thigh, initial encounter
CPT/HCPCS: 73718

== ENCOUNTER 2024-02-26 09:30 | Day surgery (SDC) | payer OTHER, SELFPAY ==
[2024-02-26] VITALS (18 sets, daily range): BP systolic 94–127; BP diastolic 56–90; PULSE 64–83; RESP 15–24; TEMP 36.3–36.8; O2SAT 94–97; BMI 28.2
--- OUTSIDE RECORDS SUMMARY | 2024-02-26 09:35 | XMS_ITS | Encounter Summary ---
Author Organization [facility] Address [address] [place] [address] Care Team Providers Care Foster Winder Name Role Phone Clinic, [facility] [place] Primary Care Provider Clinic, [facility] Primary Care Provider Encounter Details Date Type Department Care Team (Late st Contact Info) Description 11/06/2011 Office Visit-P INTERFACE P DEPT Sebas Bryson MD XXX RESIGNED XXX [place] [id number] Social History Tobacco Use Types Packs/Day Years [...] Bryson MD - 11/06/2011 2:30 PM CDT Clinic Business Manager: Sebas Bryson Status: Final - Signature Encounter: 2011-11-06 14:30:00.000 Type: CV Surgery Letter Department of Surgery Division of Cardiovascular and Thoracic Surgery [place] Mail Code 495 [address] [address] [facility]icians Cardiothoracic Surgery [address] [facility] [address] [facility] [address] November 06, 2011 Vineet Young MD [address] [place] [address] Mike Nugent MD [facility] [address] [facility] [address] RE: Paulino Mcbride : 1965 XAVIER: 11/06/2011 [...] metoprolol, simvastatin and Roxicodone. [facility]. He has [...] by:Sebas Bryson M.D. Nov 11 2011 1:27PM PARK AIDE documented in this encounter Plan of Treatment Not on file documented as of this encounter Visit Diagnoses Not on filedocumented in this encounter Care Teams Foster Winder Relationship Specialty Start Date End Date [employer] [facility], [place] [address] [place] [address] PCP - General 10/08/11 08/03/[address] [address] PCP - General 08/04/16 documented as of this encounter
--- OUTSIDE RECORDS SUMMARY | 2024-02-26 09:35 | XMS_ITS | Encounter Summary ---
Author Organization [facility] Address [address] [place] [address]. [place] [address] Care Team Providers Care Sql Database Programmer Name Role Phone [facility], [facility] [place] Primary Care Provider Clinic, [facility] Primary Care Provider Encounter Details Date Type Department Care Team (Late st Contact Info) Description 01/26/2012 Office Visit-[facility] Clinic [place] [address] [facility] [address] [place] [address] Simón Ahumada MD [address] [facility] [address] [place], [place] [address] Social History Tobacco Use Types Packs/Day Years [...] HISTORY OF PRESENT ILLNESS Patient arrived at [place] for an [place] ([place]) visit. He was requesting to see [...] on filedocumented in this encounter Care Teams Sql Database Programmer Relationship Specialty Start Date End Date [facility], [place] [address] [address] [place], [place] [id number] PCP - General 10/08/11 08/03/16 Clinic, [address] [address] PCP - General 08/04/16 documented as of this encounter
--- OUTSIDE RECORDS SUMMARY | 2024-02-26 09:35 | XMS_ITS | Continuity of Care Document ---
Author Organization [facility] Address [address] [place] [address] Phone Care Team Providers Care Automation And Control Engineer Name Role Phone Silver Sun Unavailable Unavailable Advance Directives Directive Yes / No Effective Date File Name No Information Encounters Encounter Description Practice Location Reason(s) For Visit Diagnoses Date Provider Providers Copied on Encounter [facility] , [address], [place], [place], [id number], [place] tel:[phone] No Information Yonathan Sheppard. [facility], [address] [place] [address], [place], [place], [id number], [place]. tel:[phone] Family History Family Member Type Diagnosis Age At Onset No Information Payers Payer name Insurance type Covered green party ID Authoriza tion(s) No Information Social [...]
--- OUTSIDE RECORDS SUMMARY | 2024-02-26 09:35 | XMS_ITS | Clinical Summary ---
Author Organization [facility] Address [address] [address] Care Team Providers Care Skein Yarn Drier Name Role Phone Needs Pcp, Assignment Primary Care Provider [phone] Source Comments You are receiving this document as you are listed as the primary care provider,follow-up provider, or the patient has been referred to you for consultation.This is in compliance with the Medicare and[facility] Hospital[facility] EHR Incentive Program,which states Providers who transition their patient to another setting of careor provider of care or refers their patient to another provider of care shouldprovide summary care record for each transition of care or referral. [employer] Allergies Active Allergy Reactions Criticality Noted Date [...] on patient's age to complete this topic Infant RSV Aged Out No longer eligi ble based on patient's age to complete this topic MCV4 Aged Out No longer eligi ble based on patient's age to complete this topic Pneumococcal Aged Out No longer eligi ble based on patient's age to complete this topic Care Teams Skein Yarn Drier Relationship Specialty Start Date End Date Needs Pcp, [place] [address] PCP - General 04/29/23
--- OUTSIDE RECORDS SUMMARY | 2024-02-26 09:35 | XMS_ITS | Referral Summary ---
Author Organization [facility] Address [address] [place] [address] Care Team Providers Care Motorman/Woman Name Role Phone [facility], [facility] Primary Care Provider Allergies Active Allergy Reactions [...] transplanted heart 10/23/2011 Overview: 3V CABG. 10/10/2011- [facility] Mixed hyperlipidemia 07/23/2010 Resolved Problems Problem Noted Date Diagnosed Date Resolved Date Advanced directives, counseling/discussion 10/16/2011 10/17/2011 Overview: Discussed advance care planning with patient; information given to patient to review. Pt received [employer] packet. Jhoana Kelley, [facility] 10/16/2011 Unstable angina 10/10/2011 10/17/2011 Pain in [...] on file Medical Devices Implanted Type Area Senior Pastor Device Identifier Shelf Expiration Date Model / Serial / Lot Imp Clip Horiz Multi Sm Yellow Implanted:Qty: 2 on 10/13/2011 at [facility] [id number] / / Procedures Procedure Name Priority Date/Time [...] and gender (Macario et al., NEJM, DOI: 10.1056/[id number]) Blood STRUCTURE OF RIGHT UPPER LIMB / Unknown Venipuncture / Unknown 08/23/2021 11:20 AM CDT 08/23/2021 11:27 AM CDT Severo Benjamin PA-C LAB - BLOOD ORDERABL ES LABORATORY [facility] Acute Care Lab [address] Lab (1st floor, no room number) [place] [address] [phone] * (ABNORMAL) Lipid panel reflex to direct LDL (10/11/2011 5:00 AM CDT) Cholesterol 190 0 - 200 mg/dL [facility] Comment: LDL Cholesterol is the primary guide to therapy. The NCEP recommends further evaluation of: patients with cholesterol greater than 200 mg/dL if additional risk factors are present, cholesterol greater than 240 mg/dL, triglycerides greater than 150 mg/dL, or HDL less than 40 mg/dL. Triglycerides 209(H) 0 - 150 mg/dL [facility] HDL Cholesterol 48 40 - 110 mg/dL [facility] LDL Cholesterol Calculated 100 0 - 129 mg/dL [facility] Comment: LDL Cholesterol is the primary guide to therapy: LDL-cholesterol goal in high risk patients is <100 mg/dL and in very high risk patients is <70 mg/dL. VLDL-Cholesterol 42(H) 0 - 30 mg/dL [facility] Cholesterol/HDL Ratio 3.9 0.0 - 5.0 [facility] Blood specimen (specimen) 10/11/2011 5:00 AM CDT 10/11/2011 5:33 AM CDT Amilcar Kovacs MD LAB - BLOOD ORDERABL ES [facility] from Last 3 Months or Most Recently Relevant to Health Maintenance Advance Directives For more information, please contact: [phone] * Full Code (Latest Code Status on File) Date Activated Date Inactivated Comments 01/02/2014 5:50 PM 01/03/2014 9:50 PM * Full Code Date Activated Date Inactivated Comments 10/10/2011 11:15 PM 10/18/2011 8:18 PM Care Teams Motorman/Woman Relationship Specialty Start Date End Date Clinic, [facility] [address] [place] [address] PCP - General 08/04/16
--- OUTSIDE RECORDS SUMMARY | 2024-02-26 09:35 | XMS_ITS | Encounter Summary ---
Author Organization [facility] Address [address] [place] [address]. [place] [address] Care Team Providers Care Answering Service Agent Name Role Phone Clinic, [facility] [place] Primary Care Provider Clinic, [facility] Primary Care Provider Encounter Details Date Type Department Care Team (Late st Contact Info) Description 03/15/2012 Office Visit-[facility] [address] [place] [address] Vineet Young MD [address] [facility] [address] [place], [place] [address] Social History Tobacco Use Types Packs/Day Years [...] old Referring Physician: GENEVIEVE CANNON Referring Clinic: [facility] CURRENT DIAGNOSES 1. - CAD, 414.00 2. [...] post bypass surgery. Mr. Cali presented to [facility] with unstable angina in September [...] details with Dr. Krueger, my colleague at [facility]. We both felt the patient was not a good candidate for percutaneous revascularization and in view of his instability he was transferred to [facility]. The patientthen underwent bypass surgery by [...] saw his primary caredoctor, Dr. Cannon from [facility]. He told me he underwent x-ray that did not show any prob lems at the sternal site. 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 Height- 74.50 BMI Measurement: [facility] Error: [Alphion][ODBC SQL Licensed Mental Health Counselor Patient Portal Representative][SQL Licensed Mental Health Counselor]Divide by zero error encountered. - [id number] CONSTITUTIONAL cooperative, alert and oriented,well developed, well [...] or Naproxen. RECOMMENDATIONS: 1.I have asked my international nurse Delores to make an appointment for the [...] months 2. F/U with Nina Landry, MSN, CUT PRESS OPERATOR 1 month Vineet Young MD documented in this encounter Plan of Treatment Not on file documented as of this encounter Visit Diagnoses Not on filedocumented in this encounter Care Teams Answering Service Agent Relationship Specialty Start Date End Date [facility], [facility] [address] [place] [address] PCP - General 10/08/11 08/03/[address] [address] PCP - General 08/04/16 documented as of this encounter
--- OUTSIDE RECORDS SUMMARY | 2024-02-26 09:35 | XMS_ITS | Encounter Summary ---
Author Organization [facility] Address [address] [place] [address] Care Team Providers Care Salt Miner Name Role Phone Clinic, [facility] [place] Primary Care Provider Clinic, [facility] Primary Care Provider Encounter Details Date Type Department Care Team (Late st Contact Info) Description 03/18/2012 Office Visit-P INTERFACE P DEPT Sebas Bryson MD XXX RESIGNED XXX [place] [id number] Social History Tobacco Use Types Packs/Day Years [...] Bryson MD - 03/18/2012 2:30 PM CDT Patient Navigator: Sebas Bryson Status: Final - Signature Encounter: 2012-03-18 14:30:00.000 Type: CV Surgery Visit Department of Surgery Division of Cardiovascular and Thoracic Surgery [place] Mail Code [address] [address] [facility] Physicians Cardiothoracic Surgery [address] [facility] [address] [facility] [address] RE: Paulino Mcbride : 1965 XAVIER: 03/18/2012 CARDIOVASCULAR SURGERY VISIT--[facility] POSTOPERATIVE VISIT NOTE: Mr. 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 Apr 20 2012 1:44PM BAD CLOTH CHECKER CLOTH CHECKER documented in this encounter Plan of Treatment Not on file documented as of this encounter Visit Diagnoses Not on filedocumented in this encounter Care Teams Salt Miner Relationship Specialty Start Date End Date [facility], [place] [address] [place] [address] PCP - General 10/08/11 08/03/16 [facility], [address] [address] PCP - General 08/04/16 documented as of this encounter
--- OUTSIDE RECORDS SUMMARY | 2024-02-26 09:35 | XMS_ITS | Continuity of Care Document ---
Author Organization [facility] Address [address] [place] [address] Phone Care Team Providers Care Prison Classification Counselor Name Role Phone Aspen Styles NP, NP Unavailable Unavailable Medications Medication Instructions Dosage Effective Dates (start - stop) Status Comments VICODIN (unknown strength) Unknown Not Available - Active Advance Directives Directive Yes / No Effective Date File Name No Information Encounters Encounter Description Practice Location Reason(s) For Visit Diagnoses Date Provider Providers Copied on Encounter [facility], [address] [facility] [address] [facility], [place], [place], [id number], [place] tel:[phone] [facility] No Information Jensen Louise. [address] [facility] [address], [facility], [place], [address], [place]. tel:[phone] Referring Provider: Sebastian Rodriguez MD, [facility] [address] [place] [address] [address], [place], [address]. tel:[phone] Family History Family Member Type Diagnosis Age [...]
--- OUTSIDE RECORDS SUMMARY | 2024-02-26 09:35 | XMS_ITS | Clinical Summary ---
Author Organization [facility] Address [address] [place] [id number] Care Team Providers Care Gearman Name Role Phone [facility], 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 10/10/2011- [facility] Mixed hyperlipidemia 07/23/2010 Resolved Problems Problem Noted Date Diagnosed Date Resolved Date Advanced directives, counseling/discussion 10/16/2011 10/17/2011 Overview: Discussed advance care planning with patient; information given to patient to review. Pt received A Bit Lucky packet. Jhoana Kelley, [facility] 10/16/2011 Unstable angina 10/10/2011 10/17/2011 Pain [...] PLANNING 10/16/2016 10/17/2011, 012 COVID-19 Vaccine ( - season) 2024 08/25/2020, 08/04/2020 INFLUENZA VACCINE (#1) 2024 05/14/2020 GLUCOSE 08/23/2024 08/23/2021, 06/19, 08/04/2016, Additional history exists DTAP/TDAP/TD IMMUNIZATION (4 - Td or Tdap) 03/28/2031 03/28/2021, 09/16/2011, 04/16/2007 RSV VACCINE (1 - 1-dose 75+ series) 2041 HPV IMMUNIZATION Aged Out No longer e ligible based on patient's age to complete this topic MENINGITIS IMMUNIZATION Aged Out No l onger eligible based on patient's age to complete this topic RSV MONOCLONAL ANTIBODY Aged Out No l onger eligible based on patient's age to complete this topic Medical Devices Implanted Type Area Cook Italian Style Food Device Identifier Shelf Expiration Date Model / Serial / Lot Imp Clip Horiz Multi Sm Yellow Implanted:Qty: 2 on 10/13/2011 at [facility] [id number] / / Procedures Procedure Name Priority Date/Time Associated Diagnosis Comments BASIC METABOLIC PANEL STAT 08/23/2021 11:20 AM CDT LIPID REFLEX TO DIRECT LDL PANEL Routine 10/11/2011 5:00 AM CDT from Last 3 Months or Most Recently Relevant to Health Maintenance Results * (ABNORMAL) Basic metabolic panel (08/23/2021 11:20 AM CDT) [facility] Sodium 137 133 - 144 mmol/L 08/23/2021 [...] and gender (Macario et al., NEJM, DOI: 10.1056/[id number]) Blood STRUCTURE OF RIGHT UPPER LIMB / Unknown Venipuncture / Unknown 08/23/2021 11:20 AM CDT 08/23/2021 11:27 AM CDT Severo Benjamin PA-C LAB - BLOOD ORDERABL ES LABORATORY [facility] [address] Lab (1st floor, no room number) [place] [address], [facility] [phone] * (ABNORMAL) Lipid panel reflex to direct LDL (10/11/2011 5:00 AM CDT) Cholesterol 190 0 - 200 mg/dL [facility] Comment: LDL Cholesterol is the primary guide to therapy. The NCEP recommends further evaluation of: patients with cholesterol greater than 200 mg/dL if additional risk factors are present, cholesterol greater than 240 mg/dL, triglycerides greater than 150 mg/dL, or HDL less than 40 mg/dL. Triglycerides 209(H) 0 - 150 mg/dL [facility] HDL Cholesterol 48 40 - 110 mg/dL [facility] LDL Cholesterol Calculated 100 0 - 129 mg/dL [facility] Comment: LDL Cholesterol is the primary guide to therapy: LDL-cholesterol goal in high risk patients is <100 mg/dL and in very high risk patients is <70 mg/dL. VLDL-Cholesterol 42(H) 0 - 30 mg/dL [facility] Cholesterol/HDL Ratio 3.9 0.0 - 5.0 [facility] Blood specimen (specimen) 10/11/2011 5:00 AM CDT 10/11/2011 5:33 AM CDT Amilcar Kovacs MD LAB - BLOOD ORDERABL ES [facility] from Last 3 Months or Most Recently Relevant to Health Maintenance Advance Directives For more information, please contact: [phone] * Full Code (Latest Code Status on File) Date Activated Date Inactivated Comments 01/02/2014 5:50 PM 01/03/2014 9:50 PM * Full Code Date Activated Date Inactivated Comments 10/10/2011 11:15 PM 10/18/2011 8:18 PM Care Teams Gearman Relationship Specialty Start Date End Date [address] [address] PCP - General 08/04/16
--- NOTE | 2024-02-26 09:39 | W.PM.H&PU ---
History & Physical Update History & Physical Update H&P Reviewed and patient assessed: No changes noted
--- NOTE | 2024-02-26 09:39 | PM.ORPRC ---
Procedure Note Date of procedure: 02/26/24 Procedure: PREOPERATIVE DIAGNOSES: 1. Left shoulder rotator cuff tear. 2. Left shoulder subacromial impingement syndrome. POSTOPERATIVE DIAGNOSES: 1. Left shoulder rotator cuff tear - supraspinatus 2. Left shoulder subacromial impingement syndrome. NAME OF OPERATION: 1. Left shoulder arthroscopic rotator cuff repair. 2. Left shoulder arthroscopic bursectomy, subacromial decompression/partial acromioplasty. 3. Left shoulder arthroscopic limited debridement SURGEON: Neptali Palacios MD MOTION PICTURE SET UP WORKER: Deena Hardin P.A.-C.. An school psychologist assistant was critical for this case to assist in patient positioning, suture manipulation, arm positioning, instrument positioning, and closure. ANESTHESIA: General plus preoperative supraclavicular block. IMPLANTS: FiberTape suture x4 COMPLICATIONS: None ESTIMATED BLOOD LOSS: 15 mL INDICATIONS: The patient is a pleasant, 58-year-old male who has experienced left shoulder pain and weakness following an injury.. Physical exam and imaging were consistent with a rotator cuff tear. Given these findings, as well as the weakness and pain, and failure to improve with nonoperative management, recommendation was made for surgery. FINDINGS: Exam under anesthesia revealed stable shoulder with full range of motion. The diagnostic arthroscopy revealed grade 2 chondromalacia of the glenoid with normal appearing cartilage of the humeral head. There was mild fraying of the anterior superior labrum. Long head of the biceps tendon and biceps anchor were intact. Subscapularis tendon was intact. There was full-thickness tear of the supraspinatus medial to its footprint. Infraspinatus was intact. Stable os acromiale with downsloping anterior acromion. No loose bodies were identified within the pouch or subscapularis recess. PROCEDURE: Following a thorough discussion of risks, benefits, and alternatives, consent was obtained and the operative shoulder was marked. A supraclavicular nerve block was performed by anesthesia staff in preop holding. The patient was brought to the operating room and placed supine on the operating table. Induction of anesthesia was completed, and patient was given IV Ancef preoperatively for prophylaxis. Patient was then rotated in the beach chair position. Head was placed in padded lab head and all bony prominences were well padded. The left shoulder and upper extremity were prepped and draped usual sterile fashion. A surgical time-out was performed confirming patient identity, surgical site, and procedure. The glenohumeral joint was injected with 40 mL of normal saline using and 18g spinal needle from a posterior approach. Posterior portal was established. Anterior portal was established after localization with a spinal needle and a 7.0 mm cannula was placed here. Diagnostic arthroscopy was then performed with findings as noted above. Fraying of the anterior superior labrum was debrided using the motorized shaver. After debridement labrum was probed and confirmed to be stable. The camera was then moved to the subacromial space. A lateral portal was established after localization spinal needle in a passport cannula was placed here. Subacromial bursectomy was performed using arthroscopic shaver and radiofrequency ablation. Partial acromioplasty was performed using the bone-cutting shaver. Attention was then directed to the rotator cuff repair. The posterior lateral portal was established after localization with spinal needle. Camera was then placed in this portal as a viewing portal. The supraspinatus tear was a full-thickness, L-shaped tear that was located 1 cm medial to the humeral head attachment site. Due to the medial location of the tear repairing it back to the footprint was not possible. Decision was subsequent made to do margin convergence repair using FiberTape sutures. For FiberTape sutures were used to complete the repair. A [employer] suture Passer was used to independently passed each suture. After each set of sutures were passed knots were tied remnant sutures were cut and removed. After placement of the 4th set of sutures the cuff was probed and confirmed to be anatomically repaired. Cuff was then placed through range of motion and was noted to move as a unit. The tear site was probed and confirmed to be intact. Surgical instruments and cannulas were removed. Excess fluid was drained was drained from the subacromial space. Portal sites were closed with 3-0 nylon simple interrupted sutures. Sterile dressings were applied followed by application of an abduction sling. Patient was then rotated back in a supine position. He has woken from anesthesia and transferred to the PACU in stable condition. PLAN: 1. Discharged to home day of surgery. 2. Ice for pain and swelling. 3. Tylenol and oxycodone as needed for pain control. 4. Abduction sling at all times except for ROM and showering. -Remove sling several times daily for pendulum exercises finger, wrist, and elbow range of motion. 5. Follow-up in orthopedic clinic in 10-14 days for wound check and suture removal. 6. Will initiate formal physical therapy 2 weeks postoperatively per the complex rotator cuff repair protocol.
--- NOTE | 2024-02-26 10:06 | SUR.OPER ---
PATIENT QUESTIONS ANSWERED SATISFACTORILY PREOPERATIVELY. PATIENT BROUGHT TO OR #3 PER CART FOLLOWING THE BLOCK. Patient positioned supine on OR #3 bed for the intubation.? Perioperative team placed the right arm in a neutral position on the arm sanitation worker hosing machinery board. Left arm elevated on an IV pole in a padded strap for prep. Final approval of positioning by surgeon. CONTINUOUS IRRIGATION OF THE LEFT SHOULDER WITH MIXTURE OF 3000 NACL AND 1mg OF EPINEPHRINE DURING PROCEDURE.
[2024-02-26] MEDS: SODIUM CHLORIDE 0.9 % (FLUSH) 10 ML SYRINGE IVF (10:15)
[2024-02-26] MEDS: LACTATED RINGERS 1000 ML 1,000 ML 100 ML IV (10:15)
[2024-02-26] MEDS: MIDAZOLAM HCL 1 MG/ML inj IVP (10:20)
[2024-02-26] MEDS: fentaNYL 100 MCG/2 ML inj IVP (10:20)
--- NOTE | 2024-02-26 10:24 | SUR.PREOP ---
TIME?OUT:?1019 PT/RN/MDA?VERIFICATION?OF?SURGICAL?SITE Left Shoulder,?PROCEDURE Nerve Block,?AND?CONSENT OBTAINED?PRIOR?TO?INVASIVE?PROCEDURE.
[2024-02-26] MEDS: EPINEPHrine 1 MG in SODIUM CHLORIDE IRRIG SOLUTION 3,000 ML 3001 MG IRRIGATION ×5 (10:55→12:10)
[2024-02-26] MEDS: LIDOCAINE 1%-EPI 1:100,000 13 ML INFILTRATI (10:56)
--- NOTE | 2024-02-26 11:10 | P.NB_ITS ---
Nerve Block Nerve Block Time Seen by Provider: 10:20 Date Seen: 02/26/24 Type of block requested by surgeon for post-operative analgesia: supraclavicular Side: left Time out performed: Yes Verification of patient name: Yes Verification of date of : Yes Site marking: site marked Name of person performing procedure: Braydon Continuous monitoring Was continuous monitoring of O2 sat, B/P, radiation monitor, recorded every 15 minutes?: Yes Procedure Checklist: sterile prep, needles and gloves Ultrasound guided. Images saved: Yes Medications given in 5ml increments after negative aspiration: Ropivicaine %: 0.5 mL: 20 Needle gauge: 22 Precedex (mcg): 25 Patient tolerated procedure well: Yes Block Charges Block Charge (with Pro Fee): Brachial Plexus Use of Ultrasound Machine for Block: Yes- US Guidance/pain block
--- NOTE | 2024-02-26 11:11 | W.ANESCHARGE ---
Anesthesia Charges Start Date/Time Anesthesia Start Date: 02/26/24 Anesthesia Start Time: 10:28 Stop Date/Time Anesthesia Stop Date: 02/26/24 Anesthesia Stop Time: 13:02
--- NOTE | 2024-02-26 13:00 | W.ANESCHARGE ---
Anesthesia Charges Start Date/Time Anesthesia Start Date: 02/26/24 Anesthesia Start Time: 10:28 Stop Date/Time Anesthesia Stop Date: 02/26/24 Anesthesia Stop Time: 13:02
--- NOTE | 2024-02-26 15:35 | SUR.PHASEII ---
Patient ambulated to recliner with stand by assist. BP remains stable at 100s/60s. He states he's fatigued and wants to sleep. Patient ate food brought in by his spouse and denies nausea. States he's ready for discharge. Transferred to wheelchair independently for discharge.
== END 2024-02-26 15:28 | disposition home or self-care (01) ==
LOC: OR 09:32
PROVIDERS: PCP Family Medicine; Visit Provider Orthopaedic Surgery
PROC: (CPT 29805; principal; 2024-02-26 11:00)
DX: S46.012A Strain of muscle(s) and tendon(s) of the rotator cuff of left shoulder, initial encounter (principal); M75.42 Impingement syndrome of left shoulder; G89.18 Other acute postprocedural pain
CPT/HCPCS: 29827; 29826; 29822; 01630; 64415; 76942; J0171; J0330; J1100; J1171; J2250; J2371; J2405; J2704; J2795; J3010; J3490; J7120; L3670

== ENCOUNTER 2024-08-30 08:07 | Outpatient (CLI) | payer OTHER, SELFPAY ==
--- NOTE | 2024-08-30 08:15 | MR_ITS ---
[address] [address] Phone:?[phone] Fax:?[phone] Referring Physician Information: Bennett Palacios M.D. [id number] [facility] [address] Phone:?[phone] Fax:?[phone] Patient:Tosin Mcbride D.O.B:?1965 Sex:?Male Phone:?[phone] [facility] MRN:?[id number] Exam Date:?08/30/2024 EXAM: MRI of the LEFT SHOULDER, without contrast CLINICAL INFORMATION: Male, 59 years old, with left upper arm/shoulder pain. INDICATION: Evaluate for talar fracture. PRIOR SURGERY: None reported. PLAIN FILMS: None available. COMPARISONS: Left shoulder MRI dated 01/25/2024. TECHNICAL INFORMATION: Using a 1.5T MR scanner and a localizing surface coil: coronal obliques: PD, T2, STIR sagittal obliques: PD, T2 axials: PD, T2 SEDATION: None CONTRAST: None FINDINGS: Image quality is limited by patient motion artifact, which is present in every sequence. Bones: Proximal humerus: No fracture or marrow edema/pathology. No humeral Hill-Sachs or reverse Hill-Sachs lesion/impaction or contusion. Glenoid: No fracture or marrow edema/pathology. No osseous Bankart lesion. Rotator cuff and muscles/tendons: Supraspinatus: Full width, full-thickness tear of supraspinatus, tendon retraction to the medial aspect of the humeral head and grade 2 muscle atrophy. Infraspinatus: Mild-moderate infraspinatus tendinopathy, with articular surface fraying, but without discrete tear. No muscle atrophy. Teres minor: No tendinopathy, tear or atrophy. Subscapularis: Mild-moderate tendinopathy of the superior distal subscapularis, without tendon tear or muscle atrophy. Deltoid: No strain or atrophy. Coracoacromial arch: Acromion morphology: The acromion has type II morphology within unfused mesoacromion (os acromiale, axial T2 series 4 image 5). Acromiohumeral space: The acromiohumeral space measures 5 mm at its narrowest point (osseous distance). Coracohumeral space: The coracohumeral space is within normal limits. Acromioclavicular joint: Joint: No acute injury, arthropathy, or inferior hypertrophy. Ligaments: Coracoclavicular ligaments are intact. Bursae: Subacromial-subdeltoid: Mild subacromial subdeltoid bursal fluid, which reflects accumulation from the full-thickness rotator cuff tear. Subcoracoid: No convincing subcoracoid bursal thickening/bursitis. Biceps tendon: The long head of the biceps tendon is present within the bicipital groove. Mild tendinopathy of the intra-articular biceps long head tendon, without split/tear. Glenohumeral joint: Effusion/cyst: Mild-moderate glenohumeral joint effusion. Articular cartilage: Humeral head: Mild thinning of the humeral head articular cartilage, with minimal inferomedial marginal osteophytosis. Glenoid: Mild thinning of the glenoid articular cartilage, with mild anterior posterior marginal osteophytosis. Loose bodies: No discrete intra-articular body within the joint. Labrum:?Circumferential degeneration and poorly defined fraying/tearing of the labrum, which is of doubtful clinical significance. No paralabral cyst. Inferior glenohumeral ligament/axillary pouch:?Moderate thickening of inferior capsuloligamentous structures (coronal PD series 6 images 11-17). Additionally, there is soft tissue thickening throughout the rotator interval and subcoracoid recess (sagittal PD series 11 images 11-18). IMPRESSION: 1. Full-width, full-thickness tear of supraspinatus, with tendon retraction to medial aspect of the humeral head and grade 2 muscle atrophy. These findings have progressed since the prior study dated 01/25/2024. There is also mild- moderate infraspinatus & subscapularis tendinopathy, without tear. 2. Mild osteoarthritis of the glenohumeral joint with a joint effusion that extends into the subacromial subdeltoid bursa. 3. Mild narrowing of the acromiohumeral space with an unfused mesoacromion (os acromiale). However, there is no AC joint arthropathy or evidence of impingement at the AC joint. 4. Mild tendinopathy of the intra-articular biceps long head tendon without split/tear. 5. Findings in keeping with any clinical symptoms of adhesive capsulitis. 6. Circumferential degeneration and poorly defined fraying/tearing of the labrum, which is of doubtful clinical significance. BC Electronically signed on 08/30/2024 11:36:00 AM by Win Yo M.D.
== END 2024-08-30 08:08 | disposition home or self-care (01) ==
PROVIDERS: PCP Family Medicine; Visit Provider Orthopaedic Surgery
DX: M25.512 Pain in left shoulder (principal); M75.102 Unspecified rotator cuff tear or rupture of left shoulder, not specified as traumatic; M19.012 Primary osteoarthritis, left shoulder; S46.012D Strain of muscle(s) and tendon(s) of the rotator cuff of left shoulder, subsequent encounter; Z98.890 Other specified postprocedural states
CPT/HCPCS: 73221